=== PATIENT | female | born 1965 | race Caucasian/White ===

== ENCOUNTER 2016-06-11 11:51 | Emergency (ER) | payer OTHER ==
[~2016-06-11] VITALS: Ht 157.5 cm; Wt 83.8 kg
[2016-06-11 11:54] VITALS: TEMP 36.8; Ht 157.5 cm; Wt 83.8 kg
[2016-06-11] MEDS ORDERED: SODIUM CHLORIDE 0.9% 1000ML 1,000 ML IV STA (12:14)
[2016-06-11] MEDS ORDERED: METO25TA56 PO (12:17)
[2016-06-11] MEDS ORDERED: BUSP15TA70 PO (12:17)
[2016-06-11] MEDS ORDERED: FERR1TAB13 PO (12:17)
[2016-06-11] MEDS ORDERED: CLOP1TAB5 PO (12:17)
[2016-06-11] MEDS ORDERED: LISI-729 PO (12:17)
[2016-06-11] MEDS ORDERED: ATOR-26 PO (12:17)
[2016-06-11] MEDS ORDERED: VITACAP26 PO (12:17)
[2016-06-11] MEDS ORDERED: NTRGSL/4 UT (12:19)
[2016-06-11] MEDS ORDERED: AMT50 PO (12:19)
[2016-06-11] MEDS ORDERED: FURO-85 PO (12:19)
[2016-06-11] MEDS ORDERED: CITA20TA9 PO (12:19)
[2016-06-11] MEDS ORDERED: ASPI81TA28 PO (12:19)
--- NOTE | 2016-06-11 12:20 | EMERGENCY ROOM VISIT NOTE ---
History Report prepared by Dorothy: Madisyn Davila Under the Supervision of: Dr. Rico Acuna M.D. First contact with patient: 12:08 Chief Complaint: VAGINAL BLEEDING Stated Complaint: VAGNAL BLEEDING History of Present Illness The patient is a 51 year old female who presents to the Emergency Room with complaints of persistent vaginal bleeding that began in February. She currently rates her discomfort as a 3/10 in severity. The patient states that her last normal menstrual was in November. She states that in February she began passing baseball size clots from her vagina. She states that the bleeding had slowed down, but not completely. The patient states that she consulted her PCP about how much she was bleeding, and after blood work a few weeks ago she was found to be anemic. She states that she was placed on Iron and Vitamin C and set up with Gynecology in July. The patient states that recently she started passing golf ball size clots and states that she soaks through 10-15 pads per hour. She states that if she coughs or sneezes she causes increased bleeding. The patient additionally associates abdominal pain that she describes as labor pains. Source of History: patient Onset: February Position: other (vaginal) Symptom Intensity: 3/10 Quality: other (bleeding) Timing: other (persistent) Modifying Factors (Worsening): other (coughing, sneezing) Associated Symptoms: + abdominal pain Review of Systems See HPI for pertinent positives & negatives. A total of 10 systems reviewed and were otherwise negative. Past Medical & Surgical Medical Problems: (1) Heart disease (2) Hypertension (3) Stented coronary artery Surgical Problems: (1) Previous section (2) S/P triple vessel bypass (3) S/P tubal ligation Family History Diabetes mellitus Gallbladder disease Heart disease Hypertension Social History Smoking Status: Former Smoker Smokeless Tobacco Use: No Alcohol Use: occasionally Marital Status: Housing Status: lives with family Occupation Status: disabled Current/Historical Medications Scheduled Aspirin (Aspirin Ec), 81 MG PO QAM Atorvastatin (Lipitor), 80 MG PO QAM Buspirone Hcl (Buspar), 15 MG PO BID Citalopram Hydrobromide (Celexa), 20 MG PO QPM Clopidogrel Bisulfate (Plavix), 75 MG PO QAM Ferrous Sulfate (Kp Ferrous Sulfate), 1 TAB PO QPM Lisinopril (Zestril), 5 MG PO QAM Metoprolol Tartrate (Lopressor) (Lopressor), 25 MG PO BID Nitroglycerin (Nitrostat), 0.4 MG UT PRN Norethindrone Acetate (Aygestin), 1 TAB PO DAILY Vitamins C & E (Vitamin C), 1 CAP PO QPM Scheduled PRN Amitriptyline Hcl (Elavil), 10 MG PO HS PRN for Headache Furosemide (Lasix), 20 MG PO DAILY PRN for edema Allergies Coded Allergies: Bupropion (Unverified Allergy, Unknown, welts all over, itchy, swelling , 06/11/16) Physical Exam Vital Signs Date Time Temp Pulse Resp B/P Pulse Ox O2 Delivery O2 Flow Rate FiO2 06/11/16 16:17 58 20 127/73 98 06/11/16 13:00 51 18 120/73 97 Room Air 06/11/16 11:54 36.8 63 18 157/74 98 Room Air Physical Exam GENERAL: Patient is a healthy-appearing well-nourished HEAD: Normocephalic atraumatic EYES: Ocular movements intact pupils equal and react to light OROPHARYNX mucous membranes are moist no exudates present no erythema or edema present NECK: Supple no nuchal rigidity CHEST: Good equal expansion LUNGS: Clear and equal to auscultation CARDIAC: Normal S1 and S2 ABDOMEN: Soft, mildly tender in the lower pelvic area no guarding BACK: No CVA tenderness PELVIC: Moderate amount of blood in the vaginal vault. There is no tenderness no chandelier sign. EXTREMITIES: No pain upon palpation normal muscle strength in all groups no clubbing cyanosis or edema NEURO: Patient is following commands is answering questions appropriately. Alert and oriented x3 Cranial Nerves 2-12 grossly intact Medical Decision & Procedures ER Provider Diagnostic Interpretation: US results as stated below per my review and radiologist interpretation: EXAMINATION: PELVIC ULTRASOUND CLINICAL HISTORY: Pt c/o vag bleeding COMPARISON STUDY: None FINDINGS: The uterus measured 1.7 Cm. Several small uterine fibroids measuring up to 2.2 cm. The endometrial stripe measured heterogeneous and somewhat thickened at 1.7 cm.. The right ovary measured 2.9 cm with normal vascular flow. The left ovary measured not identified possibly due to overlying bowel content. There is no ultrasonographic evidence of ovarian torsion. It should be noted that ovarian torsion can be present with normal Doppler ultrasonographic findings. There was no evidence of pathologic free pelvic fluid. IMPRESSION: 1. Several small uterine fibroids. 2. Endometrial thickening at 1.7 cm 3. Normal right ovary. 4. Nonvisualization left ovary possibly due to overlying bowel content Electronically signed by: Nelson Matthews M.D. 06/11/2016 2:58 PM Dictated Date/Time: 06/11/2016 2:53 PM Laboratory Results 06/11/16 12:27 Red Blood Count 3.20, Mean Corpuscular Volume 88.4, Mean Corpuscular Hemoglobin 28.1, Mean Corpuscular Hemoglobin Concent 31.8, Mean Platelet Volume 9.2, Neutrophils (%) (Auto) 74.2, Lymphocytes (%) (Auto) 17.7, Monocytes (%) (Auto) 5.8, Eosinophils (%) (Auto) 1.7, Basophils (%) (Auto) 0.4, Neutrophils # (Auto) 7.44, Lymphocytes # (Auto) 1.77, Monocytes # (Auto) 0.58, Eosinophils # (Auto) 0.17, Basophils # (Auto) 0.04 06/11/16 12:27 Test 06/11/16 12:27 06/11/16 12:38 06/11/16 15:10 White Blood Count 10.02 K/uL (4.8-10.8) Red Blood Count 3.20 M/uL (4.2-5.4) Hemoglobin 9.0 g/dL (12.0-16.0) Hematocrit 28.3 % (37-47) Mean Corpuscular Volume 88.4 fL (80-100) Mean Corpuscular Hemoglobin 28.1 pg (25-34) Mean Corpuscular Hemoglobin Concent 31.8 g/dl (32-36) Platelet Count 330 K/uL (130-400) Mean Platelet Volume 9.2 fL (7.4-10.4) Neutrophils (%) (Auto) 74.2 % Lymphocytes (%) (Auto) 17.7 % Monocytes (%) (Auto) 5.8 % Eosinophils (%) (Auto) 1.7 % Basophils (%) (Auto) 0.4 % Neutrophils # (Auto) 7.44 K/uL (1.4-6.5) Lymphocytes # (Auto) 1.77 K/uL (1.2-3.4) Monocytes # (Auto) 0.58 K/uL (0.11-0.59) Eosinophils # (Auto) 0.17 K/uL (0-0.5) Basophils # (Auto) 0.04 K/uL (0-0.2) RDW Standard Deviation 57.5 fL (36.4-46.3) RDW Coefficient of Variation 18.0 % (11.5-14.5) Immature Granulocyte % (Auto) 0.2 % Immature Granulocyte # (Auto) 0.02 K/uL (0.00-0.02) Prothrombin Time 9.8 SECONDS (9.0-12.0) Prothromb Time International Ratio 0.9 (0.9-1.1) Activated Partial Thromboplast Time 25.0 SECONDS (21.0-31.0) Partial Thromboplastin Ratio 1.0 Anion Gap 11.0 mmol/L (3-11) Est Creatinine Clear Calc Drug Dose 89.1 ml/min Estimated GFR () 107.0 Estimated GFR (Non- 92.3 BUN/Creatinine Ratio 14.0 (10-20) Calcium Level 8.7 mg/dl (8.5-10.1) Total Bilirubin 0.6 mg/dl (0.2-1) Aspartate Amino Transf (AST/SGOT) 17 U/L (15-37) Alanine Aminotransferase (ALT/SGPT) 17 U/L (12-78) Alkaline Phosphatase 86 U/L (45-117) Total Protein 7.2 gm/dl (6.4-8.2) Albumin 3.8 gm/dl (3.4-5.0) Globulin 3.4 gm/dl (2.5-4.0) Albumin/Globulin Ratio 1.1 (0.9-2) Urine Color RED Urine Appearance CLOUDY (CLEAR) Urine pH 6.0 (4.5-7.5) Urine Specific [place] >= 1.030 (1.000-1.030) Urine Protein 2+ (NEG) Urine Glucose (UA) NEG (NEG) Urine Ketones NEG (NEG) Urine Occult Blood 3+ (NEG) Urine Nitrite NEG (NEG) Urine Bilirubin NEG (NEG) Urine Urobilinogen NEG (NEG) Urine Leukocyte Esterase NEG (NEG) Urine RBC >30 /hpf (0-4) Urine WBC 10-30 /hpf (0-5) Urine Epithelial Cells 10-20 /lpf (0-5) Urine Bacteria NEG (NEG) Urine Test NEG (NEG) Date/Time Source Procedure Growth Status 06/11/16 15:10 Cervix Swab Trichomonas Preparation - Final Complete Labs reviewed by ED physician. Medications Administered Medications (Trade) Dose Ordered Sig/Emeli Route Start Time Stop Time Status Last Admin Dose Admin Sodium Chloride (Nss 1000ml) 1,000 ml @ 999 mls/hr Q1H1M STAT IV 06/11/16 12:14 06/11/16 13:14 DC 06/11/16 12:14 999 MLS/HR Ketorolac Tromethamine (Toradol Inj) 30 mg NOW STAT IV 06/11/16 15:12 06/11/16 15:14 DC 06/11/16 15:41 30 MG Norethindrone Acetate (Aygestin Tab) 10 mg NOW STAT PO 06/11/16 15:12 06/11/16 15:14 DC 06/11/16 15:41 10 MG ED Course 1210: Past medical records reviewed. The patient was evaluated in room B7. A complete history and physical examination was performed. 1214: Ordered Sodium Chloride 1000 ml @ 999 mls/hr IV. 1506: I reevaluated the patient and she is resting comfortably. I performed a pelvic exam at this time. See physical exam for further detail. Gynecology will be consulted. 1525: I discussed the patients case with Dr. Caraballo, decal decorator. She states that the patient should be started on Aygestin. 1533: Dr. Caraballo, decal decorator called back notifying me that the patient has an appointment scheduled with Dr. Garcia, decal decorator on Saturday. 1540: I reevaluated the patient and she is doing well. I discussed the treatment plan with her and she verbalized complete understanding and agreement. The patient is ready to go home. Medical Decision Differential diagnosis: Etiologies such as ectopic , dysfunction uterine bleeding, bleeding dyscrasia, trauma, infection, as well as others were entertained. This is a 51-year-old female who presents emergency department complaining of vaginal bleeding who has been ongoing since February. I will note that the patient's Epic records were accessed and the patient's anemia is actually stable from 2 weeks ago. An IV was established, the patient CBC renal profile liver profile were all reviewed. The patient is not . She was sent for pelvic ultrasound which shows a cystic mass. I did discuss the case with gynecology who asked that the patient started on Aygestin. She will follow-up with gynecology on Saturday. Patient was in agreement with the treatment plan. Consults Time Called: 1511 Consulting Physician: Dr. Caraballo, decal decorator Returned Call: 1525 I discussed the patients case with Dr. Caraballo, decal decorator. She states that the patient should be started on Aygestin. Impression Primary Impression: Abnormal vaginal bleeding Scribe Attestation The scribe's documentation has been prepared under my direction and personally reviewed by me in its entirety. I confirm that the note above accurately reflects all work, treatment, procedures, and medical decision making performed by me. Departure Information Dispostion Home / Self-Care Prescriptions Norethindrone Acetate (AYGESTIN) 5 Mg Tab 1 TAB PO DAILY for 10 Days, #10 TAB Prov: Rico Acuna MD 06/11/16 Referrals Dano Garcia ., Jamal Avelar M.D., Canan., MD Forms HOME CARE DOCUMENTATION FORM, IMPORTANT VISIT INFORMATION, WORK / SCHOOL INSTRUCTIONS Patient Instructions Bleeding Uterine, ED Bleed Irregular Vaginal, [facility] Additional Instructions Follow up with Dr Garcia's office 330 on Saturday Take 10 mg Aygestin tomorrow only; after tomorrow continue 5 mg Culture results are usually available in approx 48 hours You have been examined and treated today on an emergency basis only. This is not a substitute for, or an effort to provide, complete comprehensive medical care. It is impossible to recognize and treat all injuries or illnesses in a single emergency department visit. It is therefore important that you follow up closely with Dr Carter Call as soon as possible for an appointment. Thank you for your time and consideration. I look forward to speaking with you again soon. Please don't hesitate to call us if you have any questions.
[2016-06-11 12:44] LABS: BASO % 0.4 %; BASO ABS # 0.04 K/uL (0-0.2); COMPLETE YES; EOS % 1.7 %; HEMATOCRIT 28.3 % (37-47); IG% 0.2 %; LYMPH % 17.7 %; LYMPH ABS # 1.77 K/uL (1.2-3.4); MEAN CELL VOLUME 88.4 fL (80-100); MEAN CORPUSCULAR HEMOGLOBIN 28.1 pg (25-34); MEAN CORPUSCULAR HGB CONC 31.8 g/dl (32-36); MEAN PLATELET VOLUME 9.2 fL (7.4-10.4); MONO % 5.8 %; NEUT % 74.2 %; PLATELET COUNT 330 K/uL (130-400); WHITE BLOOD COUNT 10.02 K/uL (4.8-10.8)
[2016-06-11 12:52] LABS: INR 0.9 (0.9-1.1); PROTHROMBIN TIME (PATIENT) 9.8 SECONDS (9.0-12.0)
[2016-06-11 13:00] LABS: CALCIUM 8.7 mg/dl (8.5-10.1); CREATININE 0.75 mg/dl (0.60-1.20); POTASSIUM 4.1 mmol/L (3.5-5.1)
[2016-06-11 13:03] LABS: ALB/GLOB RATIO 1.1 (0.9-2)
[2016-06-11 13:22] LABS: MANUAL MICROSCOPIC REQUIRED? YES; REVIEW REQ? NO; URINE APPEARANCE CLOUDY (CLEAR); URINE BILIRUBIN NEG (NEG); URINE COLOR RED; URINE NITRITE NEG (NEG); URINE SPECIFIC GRAVITY >= 1.030 (1.000-1.030); UROBILINOGEN NEG (NEG)
[2016-06-11 13:24] LABS: URINE RBC >30 /hpf (0-4)
[2016-06-11 13:25] LABS: URINE BACTERIA NEG (NEG)
--- NOTE | 2016-06-11 15:00 | DIAGNOSTIC IMAGING REPORT ---
EXAMINATION: PELVIC ULTRASOUND CLINICAL HISTORY: Pt c/o vag bleeding COMPARISON STUDY: None FINDINGS: The uterus measured 1.7 Cm. Several small uterine fibroids measuring up to 2.2 cm. The endometrial stripe measured heterogeneous and somewhat thickened at 1.7 cm.. The right ovary measured 2.9 cm with normal vascular flow. The left ovary measured not identified possibly due to overlying bowel content. There is no ultrasonographic evidence of ovarian torsion. It should be noted that ovarian torsion can be present with normal Doppler ultrasonographic findings. There was no evidence of pathologic free pelvic fluid. IMPRESSION: 1. Several small uterine fibroids. 2. Endometrial thickening at 1.7 cm 3. Normal right ovary. 4. Nonvisualization left ovary possibly due to overlying bowel content Electronically signed by: Nelson Matthews M.D. 06/11/2016 2:58 PM Dictated Date/Time: 06/11/2016 2:53 PM
[2016-06-11] MEDS ORDERED: NORETHINDRONE ACETATE 5 MG TAB PO STA (15:12)
[2016-06-11] MEDS ORDERED: KETOROLAC TROMETHAMINE 30 MG/ML VIAL IV STA (15:12)
[2016-06-11] MEDS ORDERED: AYG/5 PO (15:32)
[2016-06-11 16:17] VITALS: BP 127/73; PULSE 58; O2SAT 98
[2016-06-14 01:17] LABS: CHLAMYDIA TRACH RNA*** NOT DETECTED (NOT DETECTED); GC (NEIS GONORRHOEAE)RNA** NOT DETECTED (NOT DETECTED)
--- NOTE | 2016-06-14 15:53 | Pharmacy Progress Note ---
ED Pharmacist Culture FollowUp Date of Service: Jun 14, 2016. Gardnerella vaginalis isolated in genital culture. No clue cells. Pelvic exam with moderate blood, but no other discharge mentioned. Likely normal vaginal marlo. No intervention required. Case discussed w Dr. Bob.
== END 2016-06-11 16:19 | disposition home or self-care (01) ==
LOC: C.EDB 11:53
DX: N93.9 Abnormal uterine and vaginal bleeding, unspecified (principal); I10 Essential (primary) hypertension; I51.9 Heart disease, unspecified; Z98.61 Coronary angioplasty status; Z98.51 Tubal ligation status; Z87.891 Personal history of nicotine dependence; Z79.82 Long term (current) use of aspirin; Z79.899 Other long term (current) drug therapy; Z88.8 Allergy status to other drugs, medicaments and biological substances

== ENCOUNTER 2022-02-04 19:15 | Inpatient (IN) ==
[~2022-02-04 19:15] MED LIST: SODIUM CHLORIDE 0.9% 1000ML 1,000 ML IV SCH
[2022-02-04] MEDS ORDERED: OPTIRAY 320 500ml IV ONE (19:18)
[2022-02-04 19:32] LABS: Basophils # (auto) 0.09 K/uL (0-0.2); Basophils % (auto) 0.8 %; Eosinophils # (auto) 0.33 K/uL (0-0.50); Eosinophils % (auto) 3.1 %; Hematocrit (blood only) 40.1 % (34.1-44.9); Hemoglobin 13.9 g/dl (12.0-16.0); Immature Granulocytes # (auto) 0.03 K/uL (0.00-0.02); Immature Granulocytes % (auto) 0.3 %; Lymphocytes # (auto) 4.08 K/uL (1.2-3.4); Lymphocytes % (auto) 37.8 %; Mean Corpuscular Hgb Conc 34.7 g/dL (32.0-36.0); Mean Corpuscular Volume 92.2 fL (80.0-100.0); Mean Platelet Volume 10.1 fL (9.4-12.3); Monocytes % (auto) 6.5 %; Neutrophils # (auto) 5.57 K/uL (1.4-6.5); Neutrophils % (auto) 51.5 %; Platelet Count 316 K/uL (130-400); RDW Coefficient of Variation 13.2 % (11.5-14.5); RDW Standard Deviation 44.7 fL (36.4-46.3); Red Blood Count 4.35 M/uL (3.93-5.22)
[2022-02-04] MEDS ORDERED: ONDANSETRON INJ 2 MG/ML 2 ML VIAL IV STA (19:38)
[2022-02-04] MEDS ORDERED: ONDANSETRON INJ 2 MG/ML 2 ML VIAL ONE (19:39)
[2022-02-04] MEDS ORDERED: STAT IV STA (19:45)
[2022-02-04] MEDS ORDERED: SODIUM CHLORIDE 0.9% 10ML FLUSH IV STA (19:45)
[2022-02-04] MEDS ORDERED: No Aspirin within 24hrs of THROMBOLYTIC-Stroke PO SCH (19:45)
[2022-02-04 19:48] LABS: Partial Thromboplastin Time 26.2 Seconds (21.0-31.0)
[2022-02-04] MEDS ORDERED: METOCLOPRAMIDE HCL INJ 5 MG/ML 2 ML VIAL IV STA (19:53)
--- NOTE | 2022-02-04 19:54 | CT Scan Report ---
CT angio head w con, CT angio neck with con, CT head/brain wo con CLINICAL HISTORY: 56 years-old Female with Stroke Like Symptoms. Acute strokelike symptoms COMPARISON STUDY: CTA had and neck of same day TECHNIQUE: Unenhanced axial CT scan of the brain is performed. Subsequently, following the IV adminis tration of 112 cc of Optiray, CT angiogram of the head and neck was performed from the aortic arch to the skull apex. Images are reviewed in the axial, sagittal, and coronal planes. 3-D MIPS images are created and assessed. IV contrast was administered without complication. All measurements were obtain ed according to NASCET criteria. A dose lowering technique was utilized adhering to the principles of ALARA. FINDINGS: CT BRAIN: There is no acute intracranial hemorrhage, midline shift, hydrocephalus, intracranial mass, territori al ischemia or abnormal extra-axial collections. No abnormal intra-axial or extra-axial enhancement. Mild involutional changes. Cerebral vascular calcifications. Mastoid air cells and middle ear caviti es are clear. No calvarial fracture. Paranasal sinuses are clear. CT ANGIOGRAM OF THE HEAD AND NECK: Prior median sternotomy with CABG. Three-vessel morphology of the thoracic aortic arch. Patency of th e innominate and imaged subclavian arteries. The common and internal carotid arteries are patent. Ath erosclerotic plaque of the carotid bulbs results in less than 50% stenosis bilaterally. The bilateral anterior and middle cerebral arteries are also patent. Dominant left vertebral artery. Atherosclerot ic plaque of the left greater the right vertebral arteries without high-grade stenosis. The basilar a rtery is patent. Mild to moderate multifocal luminal narrowing throughout the right posterior cerebra l artery. Age-indeterminate occlusion of the P1 segment of the left posterior cerebral artery on imag e 97 series 5 mild distal reconstitution suggested. Cerebral venous sinuses are patent. Otherwise unr emarkable exam without aneurysm or dissection. Thorax. The lung apices appear clear. Unremarkable soft tissues of the neck. Degenerative changes of the cervical spine. IMPRESSION: 1. No acute intracranial abnormality identified. 2. 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 3. Mild atherosclerotic plaque of the carotid bulbs and proximal cervical segments of the internal ca rotid arteries without significant stenosis. ACT 112: Negative or not required by law. The above report was generated using voice recognition software. It may contain grammatical, syntax o r spelling errors. Electronically signed by: Drake Nevarez M.D. 02/04/2022 7:51 PM
[2022-02-04] MEDS ORDERED: TENECTEPLASE 20 MG in SYRINGE 0 ML IV ONE (19:56)
[2022-02-04 20:01] LABS: Troponin I High Sensitivity 5.9 pg/ml (0-14)
[2022-02-04] MEDS ORDERED: SODIUM CHLORIDE 0.9% 500 ML IV ONE (20:18)
--- NOTE | 2022-02-04 20:18 | Emergency Department Note ---
History of Present Illness General Chief complaint: Stroke Alert Stated complaint: STROKE SYMPTOMS History of Present Illness 56-year-old female presents to the ED with a chief complaint of stroke symptoms. Her symptoms started at around 1800 hrs. today. She states that she was packing to meet with her . She suddenly felt like she could not feel her right side. She also could not move her right side including the right arm and right leg. She also states that her right side of her vision was lost. She was transported here by EMS. She has history of CABG and stents in the past. No recent bleeding. Takes aspirin but no anticoagulants. A stroke alert was called prior to the patient's arrival. Home Medications Medication Instructions Recorded Confirmed Type acetaminophen 500 mg tablet 1,000 mg PO TID PRN Pain 02/04/22 02/04/22 History amlodipine 5 mg tablet 5 mg PO DAILY 02/04/22 02/04/22 History aspirin 81 mg tablet,delayed 81 mg PO DAILY 02/04/22 02/04/22 History release atorvastatin 80 mg tablet 80 mg PO DAILY 02/04/22 02/04/22 History buspirone 5 mg tablet 5 mg PO BID 02/04/22 02/04/22 History citalopram 40 mg tablet 40 mg PO DAILY 02/04/22 02/04/22 History ezetimibe 10 mg tablet 10 mg PO DAILY 02/04/22 02/04/22 History fenofibrate 54 mg tablet 54 mg PO DAILY 02/04/22 02/04/22 History furosemide 20 mg tablet 20 mg PO DAILY PRN edema,fluid 02/04/22 02/04/22 History accumulation or wt gain lisinopril 2.5 mg tablet 2.5 mg PO DAILY 02/04/22 02/04/22 History metoprolol succinate 25 mg 12.5 mg PO DAILY 02/04/22 02/04/22 History tablet,extended release 24 hr nitroglycerin 0.4 mg sublingual 0.4 mg sublingual Q5W PRN Chest 02/04/22 02/04/22 History tablet (Nitrostat) Pain Allergies Allergy/AdvReac Type Severity Reaction Status Date / Time bupropion Allergy Unknown welts all Unverified 02/04/22 19:45 over, itchy, swelling Past Med/Surg History Medical History (Updated 02/04/22 @ 23:26 by Rico Unger DO) CAD (coronary artery disease) Hyperlipidemia Hypertension Obesity Social History Smoking Status: Never smoker Preferred Language: Slovenian Feels Safe at Home: Yes Review of Systems A total of 10 systems reviewed and were otherwise negative Physical Exam Vital Signs Vital Signs - 24 hr 02/04/22 19:28 02/04/22 20:00 02/04/22 20:14 Temperature 36.8 C Temperature Source Oral Pulse Rate 80 Pulse Rate [Finger] 75 78 Respiratory Rate 20 18 16 Blood Pressure 128/89 Blood Pressure [Right Arm] 132/86 144/77 H Blood Pressure Mean 102 Blood Pressure Mean [Right Arm] 101 99 Pulse Oximetry 93 95 97 Oxygen Delivery Method Room Air Room Air Room Air Oxygen Flow Rate Sepsis Recent Fever Within 48 Hours No Sepsis New/Unexplained Change in Mental Status N/A Sepsis Action Taken by Nursing No Action Required 02/04/22 20:30 02/04/22 20:45 02/04/22 21:00 Temperature Temperature Source Pulse Rate Pulse Rate [Finger] 71 72 72 Respiratory Rate 18 20 16 Blood Pressure Blood Pressure [Right Arm] 121/61 106/61 127/63 Blood Pressure Mean Blood Pressure Mean [Right Arm] 81 76 84 Pulse Oximetry 95 94 92 Oxygen Delivery Method Room Air Room Air Room Air Oxygen Flow Rate Sepsis Recent Fever Within 48 Hours Sepsis New/Unexplained Change in Mental Status Sepsis Action Taken by Nursing 02/04/22 21:15 02/04/22 21:30 02/04/22 21:45 Temperature Temperature Source Pulse Rate Pulse Rate [Finger] 73 78 70 Respiratory Rate 18 20 16 Blood Pressure Blood Pressure [Right Arm] 109/61 105/66 113/64 Blood Pressure Mean Blood Pressure Mean [Right Arm] 77 79 80 Pulse Oximetry 91 96 97 Oxygen Delivery Method Room Air Nasal Cannula Nasal Cannula Oxygen Flow Rate 2 2 Sepsis Recent Fever Within 48 Hours Sepsis New/Unexplained Change in Mental Status Sepsis Action Taken by Nursing CONSTITUTIONAL/VITAL SIGNS: Reviewed / noted above. GENERAL: Non-toxic in appearance. INTEGUMENTARY: Warm, dry, and [place]. HEAD: Normocephalic. EYES: without scleral icterus or trauma. ENT/OROPHARYNX: clear and moist. LYMPHADENOPATHY/NECK: Is supple without lymphadenopathy or meningismus. RESPIRATORY: Clear to auscultation bilaterally. No increased work of breathing. CARDIOVASCULAR: Regular rate and rhythm. GI/ABDOMEN: Soft and nontender. No organomegaly or pulsatile mass. EXTREMITIES: Warm and well perfused. NEUROLOGICAL: Patient has some right-sided visual loss. Right leg and right arm are weak although she seems to have loss of coordination especially of the right arm. She is right-handed. Grossly sensation is intact although she states that her right leg and right arm feels slightly different than the left. PSYCHIATRIC: normal affect. MUSCULOSKELETAL: Normally developed with good muscle tone. TRIAGE NURSING DOCUMENTATION REVIEWED. Course Administered Medications Buspirone HCl (Buspirone 5 Mg Tab) 5 mg PO TID CHIARA Stop: 03/06/22 20:59 Last Admin: 02/04/22 20:56 Dose: 5 mg Documented By: JENNYFER Discontinued Medications Sodium Chloride (Nss 1000ml) 1,000 mls @ 50 mls/hr IV .Q20H [facility] Stop: 03/06/22 19:14 Last Infusion: 02/04/22 20:29 Dose: 100 mls/hr Documented By: Admin: 02/04/22 19:49 Dose: 50 mls/hr Documented By: JENNYFER Tenecteplase 20 mg/ Syringe 4 mls @ 48 mls/min IV NOW ONE; Protocol Stop: 02/04/22 19:57 Last Admin: 02/04/22 19:59 Dose: 48 mls/min Documented By: JENNYFER Co-signed By: ELI Magnesium Sulfate/Dextrose (Magnesium Sulfate / D5w) 1 gm in 100 mls @ 200 mls/hr IV Q30M [facility] Stop: 02/04/22 21:17 Last Infusion: 02/04/22 21:32 Dose: 0 mls/hr Documented By: Admin: 02/04/22 20:55 Dose: 200 mls/hr Documented By: Infusion: 02/04/22 20:55 Dose: 200 mls/hr Documented By: Admin: 02/04/22 20:25 Dose: 200 mls/hr Documented By: JENNYFER Sodium Chloride (Nss) 500 mls @ 999 mls/hr IV .Q31M ONE Stop: 02/04/22 20:48 Last Infusion: 02/04/22 20:29 Dose: 0 mls/hr Documented By: Admin: 02/04/22 20:25 Dose: 999 mls/hr Documented By: JENNYFER Ioversol (Optiray 320 500ml) 112 ml IV ONCE ONE Stop: 02/04/22 19:19 Last Admin: 02/04/22 19:19 Dose: 112 ml Documented By: KENIA Lorazepam (Lorazepam 1 Mg/1 Ml Syr) 1 mg IV NOW STA; Protocol Stop: 02/04/22 20:27 Last Admin: 02/04/22 20:31 Dose: 1 mg Documented By: JENNYFER Metoclopramide HCl (Metoclopramide Hcl Inj 5 Mg/Ml 2 Ml Vial) 10 mg IV NOW STA Stop: 02/04/22 19:54 Last Admin: 02/04/22 19:58 Dose: 10 mg Documented By: JENNYFER Miscellaneous (Stat Iv) 1 each N/A NOW STA Stop: 02/04/22 19:46 Last Admin: 02/04/22 19:49 Dose: 1 each Documented By: JENNYFER Ondansetron HCl (Ondansetron Inj 2 Mg/Ml 2 Ml Vial) 4 mg IV NOW STA Stop: 02/04/22 19:39 Last Admin: 02/04/22 19:45 Dose: 4 mg Documented By: JENNYFER Ondansetron HCl (Ondansetron Inj 2 Mg/Ml 2 Ml Vial) Confirm Administered Dose 4 mg .ROUTE .STK-MED ONE Stop: 02/04/22 19:40 Last Admin: 02/04/22 19:49 Dose: Not Given Documented By: JENNYFER Sodium Chloride (Sodium Chloride 0.9% 10ml Flush) 20 ml IV NOW STA Stop: 02/04/22 19:46 Last Admin: 02/04/22 20:00 Dose: 20 ml Documented By: JENNYFER Critical Care Time Critical Care Time: Yes Total Critical Care Time: 45 I have personally spent 45 minutes of critical care time in the direct management of this patient. This includes bedside care, interpretation of diagnostic studies, and testing, discussion with consultants, patient, and family members, and other required patient management activities. This 45 minutes is in excess of all separately billable procedures. Medical Decision Making Differential Diagnosis Differential includes acute coronary syndrome, myocardial infarction, CVA, TIA, anemia, infection, pneumonia, UTI, pyelonephritis, poor nutrition, dehydration, electrolyte disturbance,hypoglycemia. Medical Records Attestation: I reviewed the patient's medical records. Home Medications Current Medication List: was personally reviewed by me Laboratory Data Attestation: I reviewed the patient's lab results. Result diagrams: 02/04/22 19:00 02/04/22 19:00 Lab Results 02/04/22 02/04/22 02/04/22 Range/Units 19:00 19:00 19:00 WBC 10.80 (4.8-10.8) K/ul RBC 4.35 (3.93-5.22) M/uL Hgb 13.9 (12.0-16.0) g/dl Hct 40.1 (34.1-44.9) % MCV 92.2 (80.0-100.0) fL MCH 32.0 (25.0-34.0) pg MCHC 34.7 (32.0-36.0) g/dL RDW Std Deviation 44.7 (36.4-46.3) fL RDW Coeff of Sophie 13.2 (11.5-14.5) % Plt Count 316 (130-400) K/uL MPV 10.1 (9.4-12.3) fL Immature Gran % (Auto) 0.3 % Neut % (Auto) 51.5 % Lymph % (Auto) 37.8 % Mccracken % (Auto) 6.5 % Eos % (Auto) 3.1 % Baso % (Auto) 0.8 % Neut # (Auto) 5.57 (1.4-6.5) K/uL Lymph # (Auto) 4.08 H (1.2-3.4) K/uL Mccracken # (Auto) 0.70 (0.24-0.82) K/uL Eos # (Auto) 0.33 (0-0.50) K/uL Baso # (Auto) 0.09 (0-0.2) K/uL Immature Gran # (Auto) 0.03 H (0.00-0.02) K/uL PT 11.0 (9.0-12.0) Seconds INR 1.0 (0.9-1.1) APTT 26.2 (21.0-31.0) Seconds PTT Ratio 1.0 Sodium 137 (136-145) mmol/L Potassium 3.5 (3.5-5.1) mmol/L Chloride 102 (98-107) mmol/L Carbon Dioxide 21 (21-32) mmol/L Anion Gap 14 H (3-11) BUN 18 (6-23) mg/dl Creatinine 1.00 (0.6-1.2) mg/dl Est Cr Clr Drug Dosing 63.6 ml/min Est GFR ( Amer) 72.9 ml/min Est GFR (Non-Af Amer) 62.9 ml/min BUN/Creatinine Ratio 18.0 (10-20) Glucose 135 H (70-99(Fasting)) mg/dl Lactate (0.4-2.0) mmol/L Calcium 10.0 (8.5-10.1) mg/dl Magnesium 1.7 (1.7-2.4) mg/dl Total Bilirubin 1.1 H (0.2-1.0) mg/dl AST 22 (13-39) U/L ALT 18 (7-52) U/L Alkaline Phosphatase 72 (34-104) U/L Troponin I High Sens 5.9 (0-14) pg/ml Total Protein 7.7 (6.0-8.3) gm/dl Albumin 4.6 (3.4-5.0) gm/dl Globulin 3.1 (2.5-4.0) gm/dl Albumin/Globulin Ratio 1.5 (0.9-2) Urine Color Urine Appearance (Clear) Urine pH (4.5-7.5) Ur Specific Addison (1.000-1.030) Urine Protein (Negative) Urine Glucose (UA) (Negative) Urine Ketones (Negative) Urine Blood (Negative) Urine Nitrite (Negative) Urine Bilirubin (Negative) Urine Urobilinogen (Negative) Ur Leukocyte Esterase (Negative) Urine WBC (Auto) (0-5) /hpf Urine RBC (Auto) (0-4) /hpf U Hyaline Cast (Auto) (0-5) /lpf U Epithel Cells (Auto) (0-5) /lpf Urine Bacteria (Auto) (Negative) SARS-CoV-2, RNA, NAAT (NEGATIVE) Blood Type Antibody Screen 02/04/22 02/04/22 02/04/22 Range/Units 19:43 19:43 20:35 WBC (4.8-10.8) K/ul RBC (3.93-5.22) M/uL Hgb (12.0-16.0) g/dl Hct (34.1-44.9) % MCV (80.0-100.0) fL MCH (25.0-34.0) pg MCHC (32.0-36.0) g/dL RDW Std Deviation (36.4-46.3) fL RDW Coeff of Sophie (11.5-14.5) % Plt Count (130-400) K/uL MPV (9.4-12.3) fL Immature Gran % (Auto) % Neut % (Auto) % Lymph % (Auto) % Mccracken % (Auto) % Eos % (Auto) % Baso % (Auto) % Neut # (Auto) (1.4-6.5) K/uL Lymph # (Auto) (1.2-3.4) K/uL Mccracken # (Auto) (0.24-0.82) K/uL Eos # (Auto) (0-0.50) K/uL Baso # (Auto) (0-0.2) K/uL Immature Gran # (Auto) (0.00-0.02) K/uL PT (9.0-12.0) Seconds INR (0.9-1.1) APTT (21.0-31.0) Seconds PTT Ratio Sodium (136-145) mmol/L Potassium (3.5-5.1) mmol/L Chloride (98-107) mmol/L Carbon Dioxide (21-32) mmol/L Anion Gap (3-11) BUN (6-23) mg/dl Creatinine (0.6-1.2) mg/dl Est Cr Clr Drug Dosing ml/min Est GFR ( Amer) ml/min Est GFR (Non-Af Amer) ml/min BUN/Creatinine Ratio (10-20) Glucose (70-99(Fasting)) mg/dl Lactate 4.7 H* (0.4-2.0) mmol/L Calcium (8.5-10.1) mg/dl Magnesium (1.7-2.4) mg/dl Total Bilirubin (0.2-1.0) mg/dl AST (13-39) U/L ALT (7-52) U/L Alkaline Phosphatase (34-104) U/L Troponin I High Sens (0-14) pg/ml Total Protein (6.0-8.3) gm/dl Albumin (3.4-5.0) gm/dl Globulin (2.5-4.0) gm/dl Albumin/Globulin Ratio (0.9-2) Urine Color Yellow Urine Appearance Clear (Clear) Urine pH 5.0 (4.5-7.5) Ur Specific Addison > 1.045 H (1.000-1.030) Urine Protein Trace H (Negative) Urine Glucose (UA) Negative (Negative) Urine Ketones Negative (Negative) Urine Blood 1+ H (Negative) Urine Nitrite Negative (Negative) Urine Bilirubin Negative (Negative) Urine Urobilinogen Negative (Negative) Ur Leukocyte Esterase Negative (Negative) Urine WBC (Auto) 5-10 H (0-5) /hpf Urine RBC (Auto) 5-10 H (0-4) /hpf U Hyaline Cast (Auto) 1-5 (0-5) /lpf U Epithel Cells (Auto) >30 H (0-5) /lpf Urine Bacteria (Auto) 1+ H (Negative) SARS-CoV-2, RNA, NAAT (NEGATIVE) Blood Type O Positive Antibody Screen NEGATIVE 02/04/22 Range/Units 20:40 WBC (4.8-10.8) K/ul RBC (3.93-5.22) M/uL Hgb (12.0-16.0) g/dl Hct (34.1-44.9) % MCV (80.0-100.0) fL MCH (25.0-34.0) pg MCHC (32.0-36.0) g/dL RDW Std Deviation (36.4-46.3) fL RDW Coeff of Sophie (11.5-14.5) % Plt Count (130-400) K/uL MPV (9.4-12.3) fL Immature Gran % (Auto) % Neut % (Auto) % Lymph % (Auto) % Mccracken % (Auto) % Eos % (Auto) % Baso % (Auto) % Neut # (Auto) (1.4-6.5) K/uL Lymph # (Auto) (1.2-3.4) K/uL M[place]racken # (Auto) (0.24-0.82) K/uL Eos # (Auto) (0-0.50) K/uL Baso # (Auto) (0-0.2) K/uL Immature Gran # (Auto) (0.00-0.02) K/uL PT (9.0-12.0) Seconds INR (0.9-1.1) APTT (21.0-31.0) Seconds PTT Ratio Sodium (136-145) mmol/L Potassium (3.5-5.1) mmol/L Chloride (98-107) mmol/L Carbon Dioxide (21-32) mmol/L Anion Gap (3-11) BUN (6-23) mg/dl Creatinine (0.6-1.2) mg/dl Est Cr Clr Drug Dosing ml/min Est GFR ( Amer) ml/min Est GFR (Non-Af Amer) ml/min BUN/Creatinine Ratio (10-20) Glucose (70-99(Fasting)) mg/dl Lactate (0.4-2.0) mmol/L Calcium (8.5-10.1) mg/dl Magnesium (1.7-2.4) mg/dl Total Bilirubin (0.2-1.0) mg/dl AST (13-39) U/L ALT (7-52) U/L Alkaline Phosphatase (34-104) U/L Troponin I High Sens (0-14) pg/ml Total Protein (6.0-8.3) gm/dl Albumin (3.4-5.0) gm/dl Globulin (2.5-4.0) gm/dl Albumin/Globulin Ratio (0.9-2) Urine Color Urine Appearance (Clear) Urine pH (4.5-7.5) Ur Specific Addison (1.000-1.030) Urine Protein (Negative) Urine Glucose (UA) (Negative) Urine Ketones (Negative) Urine Blood (Negative) Urine Nitrite (Negative) Urine Bilirubin (Negative) Urine Urobilinogen (Negative) Ur Leukocyte Esterase (Negative) Urine WBC (Auto) (0-5) /hpf Urine RBC (Auto) (0-4) /hpf U Hyaline Cast (Auto) (0-5) /lpf U Epithel Cells (Auto) (0-5) /lpf Urine Bacteria (Auto) (Negative) SARS-CoV-2, RNA, NAAT NEGATIVE (NEGATIVE) Blood Type Antibody Screen Imaging Data Radiologist's Impression: Head CT 02/04/22 19:12 CT angio head w con, CT angio neck with con, CT head/brain wo con CLINICAL HISTORY: 56 years-old Female with Stroke Like Symptoms. Acute strokelike symptoms COMPARISON STUDY: CTA had and neck of same day TECHNIQUE: Unenhanced axial CT scan of the brain is performed. Subsequently, following the IV administration of 112 cc of Optiray, CT angiogram of the head and neck was performed from the aortic arch to the skull apex. Images are reviewed in the axial, sagittal, and coronal planes. 3-D MIPS images are created and assessed. IV contrast was administered without complication. All measurements were obtained according to NASCET criteria. A dose lowering te chnique was utilized adhering to the principles of ALARA. FINDINGS: CT BRAIN: There is no acute intracranial hemorrhage, midline shift, hydrocephalus, intracranial mass, territorial ischemia or abnormal extra-axial collections. No abnormal intra-axial or extra-axial enhancement. Mild involutional changes. Cerebral vascular calcifications. Mastoid air cells and middle ear cavities are clear. No calvarial fracture. Paranasal sinuses are clear. CT ANGIOGRAM OF THE HEAD AND NECK: Prior median sternotomy with CABG. Three-vessel morphology of the thoracic aortic arch. Patency of the innominate and imaged subclavian arteries. The common and internal carotid arteries are patent. Atherosclerotic plaque of the carotid bulbs results in less than 50% stenosis bilaterally. The bilateral anterior and middle cerebral arteries are also patent. Dominant left vertebral artery. Atherosclerotic plaque of the left greater the right vertebral arteries without high-grade stenosis. The basilar artery is patent. Mild to moderate multifocal luminal narrowing throughout the right posterior cerebral artery. Age-indeterminate occlusion of the P1 segment of the left posterior cerebral artery on image 97 series 5 mild distal reconstitution suggested. Cerebral venous sinuses are patent. Otherwise unremarkable exam without aneurysm or dissection. Thorax. The lung apices appear clear. Unremarkable soft tissues of the neck. Degenerative changes of the cervical spine. IMPRESSION: 1. No acute intracranial abnormality identified. 2. 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 3. Mild atherosclerotic plaque of the carotid bulbs and proximal cervical segments of the internal carotid arteries without significant stenosis. ACT 112: Negative or not required by law. The above report was generated using voice recognition software. It may contain grammatical, syntax or spelling errors. Electronically signed by: Drake Nevarez M.D. 02/04/2022 7:51 PM Head CTA 02/04/22 19:12 CT angio head w con, CT angio neck with con, CT head/brain wo con CLINICAL HISTORY: 56 years-old Female with Stroke Like Symptoms. Acute stro kelike symptoms COMPARISON STUDY: CTA had and neck of same day TECHNIQUE: Unenhanced axial CT scan of the brain is performed. Subsequently, following the IV administration of 112 cc of Optiray, CT angiogram of the head and neck was performed from the aortic arch to the skull apex. Images are reviewed in the axial, sagittal, and coronal planes. 3-D MIPS images are created and assessed. IV contrast was administered without complication. All thuy urements were obtained according to NASCET criteria. A dose lowering technique was utilized adhering to the principles of ALARA. FINDINGS: CT BRAIN: There is no acute intracranial hemorrhage, midline shift, hydrocephalus, intracranial mass, territorial ischemia or abnormal extra-axial collections. No abnormal intra-axial or extra-axial enhancement. Mild involutional changes. Cerebral vascular calcifications. Mastoid air cells and middle ear cavities are clear. No calvarial fracture. Paranasal sinuses are clear. CT ANGIOGRAM OF THE HEAD AND NECK: Prior median sternotomy with CABG. Three-vessel morphology of the thoracic aortic arch. Patency of the innominate and imaged subclavian arteries. The common and internal carotid arteries are patent. Atherosclerotic plaque of the carotid bulbs results in less than 50% stenosis bilaterally. The bilateral anterior and middle cerebral arteries are also patent. Dominant left vertebral artery. Atherosclerotic plaque of the left greater the right vertebral arteries without high-grade stenosis. The basilar artery is patent. Mild to moderate multifocal luminal narrowing throughout the right posterior cerebral artery. Age-indeterminate occlusion of the P1 segment of the left posterior cerebral artery on image 97 series 5 mild distal reconstitution suggested. Cerebral venous sinuses are patent. Otherwise unremarkable exam without aneurysm or dissection. Thorax. The lung apices appear clear. Unremarkable soft tissues of the neck. Degenerative changes of the cervical spine. IMPRESSION: 1. No acute intracranial abnormality identified. 2. 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 3. Mild atherosclerotic plaque of the carotid bulbs and proximal cervical segments of the internal carotid arteries without significant stenosis. ACT 112: Negative or not required by law. The above report was generated using voice recognition software. It may contain grammatical, syntax or spelling errors. Electronically signed by: Drake Nevarez M.D. 02/04/2022 7:51 PM Neck CTA 02/04/22 19:12 CT angio head w con, CT angio neck with con, CT head/brain wo con CLINICAL HISTORY: 56 years-old Female with Stroke Like Symptoms. Acute strokelike symptoms COMPARISON STUDY: CTA had and neck of same day TECHNIQUE: Unenhanced axial CT scan of the brain is performed. Subsequently, following the IV administration of 112 cc of Optiray, CT angiogram of the head and neck was performed from the aortic arch to the skull apex. Images are reviewed in the axial, sagittal, and coronal planes. 3-D MIPS images are created and assessed. IV contrast was administered without complication. All measurements were obtained according to NASCET criteria. A dose lowering technique was utilized adhering to the principles of ALARA. FINDINGS: CT BRAIN: There is no acute intracranial hemorrhage, midline shift, hydrocephalus, intracranial mass, territorial ischemia or abnormal extra-axial collections. No abnormal intra-axial or extra-axial enhancement. Mild involutional changes. Cerebral vascular calcifications. Mastoid air cells and middle ear cavities are clear. No calvarial fracture. Paranasal sinuses are clear. CT ANGIOGRAM OF THE HEAD AND NECK: Prior median sternotomy with CABG. Three-vessel morphology of the thoracic aortic arch. Patency of the innominate and imaged subclavian arteries. The common and internal carotid arteries are patent. Atherosclerotic plaque of the carotid bulbs results in less than 50% stenosis bilaterally. The bilateral anterior and middle cerebral arteries are also patent. Dominant left vertebral artery. Atherosclerotic plaque of the left greater the right vertebral arteries without high-grade stenosis. The basilar artery is patent. Mild to moderate multifocal luminal narrowing throughout the right posterior cerebral artery. Age-indeterminate occlusion of the P1 segment of the left posterior cerebral artery on image 97 series 5 mild distal reconstitution suggested. Cerebral venous sinuses are patent. Otherwise unremarkable exam without aneurysm or dissection. Thorax. The lung apices appear clear. Unremarkable soft tissues of the neck. Degenerative changes of the cervical spine. IMPRESSION: 1. No acute intracranial abnormality identified. 2. 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 3. Mild atherosclerotic plaque of the carotid bulbs and proximal cervical segments of the internal carotid arteries without significant stenosis. ACT 112: Negative or not required by law. The above report was generated using voice recognition software. It may contain grammatical, syntax or spelling errors. Electronically signed by: Drake Nevarez M.D. 02/04/2022 7:51 PM ECG Data Attestation: I personally reviewed and interpreted this ECG as follows: Additional Comments: Twelve-lead EKG: Per my interpretation shows a sinus rhythm at a rate of 83 with a PVC occasionally. No ST elevation. Normal QTC. MDM Narrative 56-year-old female presents with a chief complaint of right-sided weakness and s ome visual loss on the right side that occurred at 1800 hrs. today. A stroke alert was called prior to the patient's arrival. I did speak with Snow Cunningham neurologist who also evaluated the patient in the ED. The decision was made after speaking with the patient to provide IV TNKase. This was administered approximately 50 minutes after the patient's arrival. CBC was unremarkable. Chemistry panel shows a glucose of 135. Lactic acid was elevated at 4.7. Troponin was negative. Urine appears contaminated. Chest x-ray was negative. Impression & Plan Cerebrovascular accident Discharge Plan Visit Data Chief Complaint: Stroke Alert Stated Complaint: STROKE SYMPTOMS ED Provider: Rico Unger Discharge Problem: Cerebrovascular accident Discharge Instructions Interventions: ED Discharge Assessment Last Done: 02/04/22 22:15
[2022-02-04 20:20] LABS: Albumin Globulin Ratio 1.5 (0.9-2); Albumin Level 4.6 gm/dl (3.4-5.0); Bilirubin,Total 1.1 mg/dl (0.2-1.0); Creatinine Clr Calc Pharmacy 63.6 ml/min; Est GFR (African American) 72.9 ml/min; Est GFR (Non-African American) 62.9 ml/min; Globulin 3.1 gm/dl (2.5-4.0); Magnesium 1.7 mg/dl (1.7-2.4); Potassium 3.5 mmol/L (3.5-5.1); Total Protein 7.7 gm/dl (6.0-8.3)
[2022-02-04] MEDS: MAGNESIUM SULFATE / D5W 1 GM/100 ML BAG IV SCH ×2 (20:25→20:55)
[2022-02-04] MEDS ORDERED: LORazepam 1 MG/1 ML SYR IV STA (20:26)
[2022-02-04 20:44] LABS: Appearance Urine Clear (Clear); Bacteria Urine Automated 1+ (Negative); Bilirubin Urine Negative (Negative); Blood Urine 1+ (Negative); Color Urine Yellow; Epithelial Cell Urine Auto >30 /lpf (0-5); Glucose Urine UA Negative (Negative); Ketones Urine Negative (Negative); Leukocyte Esterase Urine Negative (Negative); Nitrite Urine Negative (Negative); Protein Urine Trace (Negative); Specific Gravity Urine > 1.045 (1.000-1.030); Urobilinogen Urine Negative (Negative)
[2022-02-04] MEDS ORDERED: busPIRone 5 MG TAB PO SCH (21:00)
--- NOTE | 2022-02-04 22:02 | Critical Care Consultation ---
Date of Consultation February 04, 2022 Assessment & Plan (1) Heart disease: (2) Hypertension: (3) CAD (coronary artery disease): (4) Hyperlipidemia: (5) Obesity: Plan Reason Critically Ill: 52 YOF arrived to EMD as stroke alert for onset of loss of sensation to right side, weakness right side, and vision loss of right side. She received TNKase at 1956 following cerebral imaging and tele stroke evaluation. Patient feels her symptoms have resolved and is back to baseline. She will be admitted to ICU for 24 hour monitoring post TNKase, neurological/hemodynamic monitoring. Neuro - Stroke like symptoms, Status post TNKase Continue neurological exams q1 hour- MRI pending, CT head non-con for any changes and 24 hour post CAM ICU: Negative - NIHSS- 0 - CVA symptoms while on ASA - defer to neurology and primary service for additional antiplatelets - Passed bedside swallow - Standard BP goals <180/105 - Normal Sodium goals - Already on high dose statin and Zetia - PT/OT consultation - ECHO in am with bubble - Telemetry monitoring for dysrhythmia - denies JAMES/CPAP usage at home Cardiac - CAD, CABG, Coronary artery stents -Early CAD with bypass grafting and stenting to [place] arteries - Continued HDS - Continue ASA- no aspirin for 24 hours - Telemetry for 24 follow for any dysrhythmias - ECHO in am with bubble study Respiratory - No acute needs - Recommend screening for JAMES for further prevention GI - NO acute needs Diet regular- passed bedside swallow RENAL/LYTES - No acute needs - electrolyte protocol - UTI - uncomplicated UTI- asymptotic per patient- defer to primary service for treatment ENDO - No acute needs HEME - No acute needs ID - UTI as above - lactate elevated on admission with no other evidence of SIRS criteria or infection - IV fluids overnight- re-evaluate LINES/IV ACCESS - PIV Continue use of these lines DVT PROPHYLAXIS - SCDS - chemoprophylaxis on hold for 24 hour following TNKase DISPO ICU I have personally spent 35 minutes of critical care time in the direct management of this patient. This is a life/limb threatening event. This includes time spent evaluating patient, direct bedside care, chart review, placing orders, interpretation of diagnostic studies, discussion with consultants, patient, and family members, as well as other required patient management activities. This time is exclusive of all separately billable procedures, and teaching time and separate from and in addition to any other critical care service time. Thank you for allowing us to participate in the care of this patient. Please refer to my attending physician's documentation for any further recommendations. History of Present Illness Reason for Consultation: Status post TNKase for stroke like symptoms Requesting Physician: Jung Attending Physician: Jung History of Present Illness 56 YOF who presented to the EMD today after experiencing what she reports as loss of sensation/function of her right upper, right lower, and vision loss of her right eye. 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 She states she sat down and then her symptoms started. She called EMS and was evaluated in the EMD as a stroke alert upon arrival. Patient had labs drawn, imaging of her head and neck was completed. These were interpreted as without acute process or any carotid disease >50%. She was deemed a TNKase candidate and this was recorded as being administered at 1956. ICU was consulted for admission for 24 hour monitoring post TPA. Patient risk factors of: HTN, CAD, HLD, Obesity. She has medical history of CABG, coronary artery stents. She is on ASA 81, high dose statin, TONY. COVID test on admission is: NEGATIVE Allergies Allergy/AdvReac Type Severity Reaction Status Date / Time bupropion Allergy Unknown welts all Unverified 02/04/22 19:45 over, itchy, swelling Home Medications Medication Instructions Recorded Confirmed Type acetaminophen 500 mg tablet 1,000 mg PO TID PRN Pain 02/04/22 02/04/22 History amlodipine 5 mg tablet 5 mg PO DAILY 02/04/22 02/04/22 History aspirin 81 mg tablet,delayed 81 mg PO DAILY 02/04/22 02/04/22 History release atorvastatin 80 mg tablet 80 mg PO DAILY 02/04/22 02/04/22 History buspirone 5 mg tablet 5 mg PO BID 02/04/22 02/04/22 History citalopram 40 mg tablet 40 mg PO DAILY 02/04/22 02/04/22 History ezetimibe 10 mg tablet 10 mg PO DAILY 02/04/22 02/04/22 History fenofibrate 54 mg tablet 54 mg PO DAILY 02/04/22 02/04/22 History furosemide 20 mg tablet 20 mg PO DAILY PRN edema,fluid 02/04/22 02/04/22 History accumulation or wt gain lisinopril 2.5 mg tablet 2.5 mg PO DAILY 02/04/22 02/04/22 History metoprolol succinate 25 mg 12.5 mg PO DAILY 02/04/22 02/04/22 History tablet,extended release 24 hr nitroglycerin 0.4 mg sublingual 0.4 mg sublingual Q5W PRN Chest 02/04/22 02/04/22 History tablet (Nitrostat) Pain Patient History Medical History (Updated 02/04/22 @ 22:07 by ABHISHEK Diaz) CAD (coronary artery disease) Hyperlipidemia Hypertension Obesity Social History Smoking Status: Never smoker Preferred Language: Estonian Feels Safe at Home: Yes Review of Systems Review of Systems: REVIEW OF SYSTEMS: Constitutional: No fever, sweats or chills Eyes: (+) vision loss to right eye, ENT: normal hearing, no trouble swallowing Respiratory: No cough, sputum, dyspnea at rest or on exertion Cardiovascular: No chest pain, tightness or palpitations Abdomen: No pain, nausea, vomiting, diarrhea or constipation Musculoskeletal: No joint pain, calf pain, swelling Neurologic: (+) weakness, numbness/tingling, No balance problems Psychiatric: No anxiety or depression Skin: No rash or itch Physical Exam Physical Exam: PHYSICAL EXAM: General: awake, alert, no apparent distress Neuro: AAO x 3, PEERLA, vision intact, no hemianopsia, speech clear and appropriate, without facial droop, strength intact bilaterally 5/5, sensation intact and equal all extremities and dermatomes, no pronator drift, no ataxia Chest: equal rise and fall of the chest, no accessory muscle use, no heaves or thrills, Clear to auscultation, on room air, Cardiac: Regular rate and rhythm, telemetry reviewed- NSR, skin warm dry, cap refill <3 seconds, peripheral pulses +2 no JVD, no murmur, no edema GI: NABS x 4 quadrants, soft, nontender to palpation, no rebound, guarding or tenderness : Spontaneously voiding, no pain, no CVA tenderness, Extremities: Normal inspection, no peripheral edema or erythema, calfs nontender to palpation Psych: Normal mood and affect Skin: no rash or erythema Results & Data Results & Data ([facility]) Vital Signs (Past 12 Hours) Vital Signs Temp Pulse Pulse Resp BP BP Pulse Ox 02/04/22 21:45 70 16 113/64 97 02/04/22 21:30 78 20 105/66 96 02/04/22 21:15 73 18 109/61 91 02/04/22 21:00 72 16 127/63 92 02/04/22 20:45 72 20 106/61 94 02/04/22 20:30 71 18 121/61 95 02/04/22 20:14 78 16 144/77 H 97 02/04/22 20:00 75 18 132/86 95 02/04/22 19:28 36.8 C 80 20 128/89 93 O2 Del Method O2 Flow Rate 02/04/22 21:45 Nasal Cannula 2 02/04/22 21:30 Nasal Cannula 2 02/04/22 21:15 Room Air 02/04/22 21:00 Room Air 02/04/22 20:45 Room Air 02/04/22 20:30 Room Air 02/04/22 20:14 Room Air 02/04/22 20:00 Room Air 02/04/22 19:28 Room Air Laboratory Results Abnormal lab results 02/04/22 02/04/22 02/04/22 Range/Units 19:00 19:00 19:43 Lymph # (Auto) 4.08 H (1.2-3.4) K/uL Immature Gran # (Auto) 0.03 H (0.00-0.02) K/uL Anion Gap 14 H (3-11) Glucose 135 H (70-99(Fasting)) mg/dl Lactate 4.7 H* (0.4-2.0) mmol/L Total Bilirubin 1.1 H (0.2-1.0) mg/dl Ur Specific [place] (1.000-1.030) Urine Protein (Negative) Urine Blood (Negative) Urine WBC (Auto) (0-5) /hpf Urine RBC (Auto) (0-4) /hpf U Epithel Cells (Auto) (0-5) /lpf Urine Bacteria (Auto) (Negative) 02/04/22 Range/Units 20:35 Lymph # (Auto) (1.2-3.4) K/uL Immature Gran # (Auto) (0.00-0.02) K/uL Anion Gap (3-11) Glucose (70-99(Fasting)) mg/dl Lactate (0.4-2.0) mmol/L Total Bilirubin (0.2-1.0) mg/dl Ur Specific [place] > 1.045 H (1.000-1.030) Urine Protein Trace H (Negative) Urine Blood 1+ H (Negative) Urine WBC (Auto) 5-10 H (0-5) /hpf Urine RBC (Auto) 5-10 H (0-4) /hpf U Epithel Cells (Auto) >30 H (0-5) /lpf Urine Bacteria (Auto) 1+ H (Negative) Diagnostic Findings Head CT 02/04/22 19:12 CT angio head w con, CT angio neck with con, CT head/brain wo con CLINICAL HISTORY: 56 years-old Female with Stroke Like Symptoms. Acute strokelike symptoms COMPARISON STUDY: CTA had and neck of same day TECHNIQUE: Unenhanced axial CT scan of the brain is performed. Subsequently, following the IV administration of 112 cc of Optiray, CT angiogram of the head and neck was performed from the aortic arch to the skull apex. Images are reviewed in the axial, sagittal, and coronal planes. 3-D MIPS images are created and assessed. IV contrast was administered without complication. All measurements were obtained according to NASCET criteria. A dose lowering technique was utilized adhering to the principles of ALARA. FINDINGS: CT BRAIN: There is no acute intracranial hemorrhage, midline shift, hydrocephalus, intracranial mass, territorial ischemia or abnormal extra-axial collections. No abnormal intra-axial or extra-axial enhancement. Mild involutional changes. Cerebral vascular calcifications. Mastoid air cells and middle ear cavities are clear. No calvarial fracture. Paranasal sinuses are clear. CT ANGIOGRAM OF THE HEAD AND NECK: Prior median sternotomy with CABG. Three-vessel morphology of the thoracic aortic arch. Patency of the innominate and imaged subclavian arteries. The common and internal carotid arteries are patent. Atherosclerotic plaque of the carotid bulbs results in less than 50% stenosis bilaterally. The bilateral anterior and middle cerebral arteries are also patent. Dominant left vertebral artery. Atherosclerotic plaque of the left greater the right vertebral arteries without high-grade stenosis. The basilar artery is patent. Mild to moderate multifocal luminal narrowing throughout the right posterior cerebral artery. Age-indeterminate occlusion of the P1 segment of the left posterior cerebral artery on image 97 series 5 mild distal reconstitution suggested. Cerebral venous sinuses are patent. Otherwise unremarkable exam without aneurysm or dissection. Thorax. The lung apices appear clear. Unremarkable soft tissues of the neck. Degenerative changes of the cervical spine. IMPRESSION: 1. No acute intracranial abnormality identified. 2. 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 3. Mild atherosclerotic plaque of the carotid bulbs and proximal cervical segments of the internal carotid arteries without significant stenosis. ACT 112: Negative or not required by law. The above report was generated using voice recognition software. It may contain grammatical, syntax or spelling errors. Electronically signed by: Drake Nevarez M.D. 02/04/2022 7:51 PM Head CTA 02/04/22 19:12 CT angio head w con, CT angio neck with con, CT head/brain wo con CLINICAL HISTORY: 56 years-old Female with Stroke Like Symptoms. Acute strokelike symptoms COMPARISON STUDY: CTA had and neck of same day TECHNIQUE: Unenhanced axial CT scan of the brain is performed. Subsequently, following the IV administration of 112 cc of Optiray, CT angiogram of the head and neck was performed from the aortic arch to the skull apex. Images are reviewed in the axial, sagittal, and coronal planes. 3-D MIPS images are created and assessed. IV contrast was administered without complication. All measurements were obtained according to NASCET criteria. A dose lowering technique was utilized adhering to the principles of ALARA. FINDINGS: CT BRAIN: There is no acute intracranial hemorrhage, midline shift, hydrocephalus, intracranial mass, territorial ischemia or abnormal extra-axial collections. No abnormal intra-axial or extra-axial enhancement. Mild involutional changes. Cerebral vascular calcifications. Mastoid air cells and middle ear cavities are clear. No calvarial fracture. Paranasal sinuses are clear. CT ANGIOGRAM OF THE HEAD AND NECK: Prior median sternotomy with CABG. Three-vessel morphology of the thoracic aortic arch. Patency of the innominate and imaged subclavian arteries. The common and internal carotid arteries are patent. Atherosclerotic plaque of the carotid bulbs results in less than 50% stenosis bilaterally. The bilateral anterior and middle cerebral arteries are also patent. Dominant left vertebral artery. Atherosclerotic plaque of the left greater the right vertebral arteries without high-grade stenosis. The basilar artery is patent. Mild to moderate multifocal luminal narrowing throughout the right posterior cerebral artery. Age-indeterminate occlusion of the P1 segment of the left posterior cerebral artery on image 97 series 5 mild distal reconstitution suggested. Cerebral venous sinuses are patent. Otherwise unremarkable exam without aneurysm or dissection. Thorax. The lung apices appear clear. Unremarkable soft tissues of the neck. Degenerative changes of the cervical spine. IMPRESSION: 1. No acute intracranial abnormality identified. 2. 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 3. Mild atherosclerotic plaque of the carotid bulbs and proximal cervical segments of the internal carotid arteries without significant stenosis. ACT 112: Negative or not required by law. The above report was generated using voice recognition software. It may contain grammatical, syntax or spelling errors. Electronically signed by: Drake Nevarez M.D. 02/04/2022 7:51 PM Neck CTA 02/04/22 19:12 CT angio head w con, CT angio neck with con, CT head/brain wo con CLINICAL HISTORY: 56 years-old Female with Stroke Like Symptoms. Acute strokelike symptoms COMPARISON STUDY: CTA had and neck of same day TECHNIQUE: Unenhanced axial CT scan of the brain is performed. Subsequently, following the IV administration of 112 cc of Optiray, CT angiogram of the head and neck was performed from the aortic arch to the skull apex. Images are reviewed in the axial, sagittal, and coronal planes. 3-D MIPS images are created and assessed. IV contrast was administered without complication. All measurements were obtained according to NASCET criteria. A dose lowering technique was utilized adhering to the principles of ALARA. FINDINGS: CT BRAIN: There is no acute intracranial hemorrhage, midline shift, hydrocephalus, intracranial mass, territorial ischemia or abnormal extra-axial collections. No abnormal intra-axial or extra-axial enhancement. Mild involutional changes. Cerebral vascular calcifications. Mastoid air cells and middle ear cavities are clear. No calvarial fracture. Paranasal sinuses are clear. CT ANGIOGRAM OF THE HEAD AND NECK: Prior median sternotomy with CABG. Three-vessel morphology of the thoracic aortic arch. Patency of the innominate and imaged subclavian arteries. The common and internal carotid arteries are patent. Atherosclerotic plaque of the carotid bulbs results in less than 50% stenosis bilaterally. The bilateral anterior and middle cerebral arteries are also patent. Dominant left vertebral artery. Atherosclerotic plaque of the left greater the right vertebral arteries without high-grade stenosis. The basilar artery is patent. Mild to moderate multifocal luminal narrowing throughout the right posterior cerebral artery. Age-indeterminate occlusion of the P1 segment of the left posterior cerebral artery on image 97 series 5 mild distal reconstitution suggested. Cerebral venous sinuses are patent. Otherwise unremarkable exam without aneurysm or dissection. Thorax. The lung apices appear clear. Unremarkable soft tissues of the neck. Degenerative changes of the cervical spine. IMPRESSION: 1. No acute intracranial abnormality identified. 2. 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 3. Mild atherosclerotic plaque of the carotid bulbs and proximal cervical segments of the internal carotid arteries without significant stenosis. ACT 112: Negative or not required by law. The above report was generated using voice recognition software. It may contain grammatical, syntax or spelling errors. Electronically signed by: Drkae Nevarez M.D. 02/04/2022 7:51 PM Medications Administered Home Medications acetaminophen 500 mg tablet 1,000 mg PO TID PRN Pain 02/04/22 [History Confirmed 02/04/22] amlodipine 5 mg tablet 5 mg PO DAILY 02/04/22 [History Confirmed 02/04/22] aspirin 81 mg tablet,delayed release 81 mg PO DAILY 02/04/22 [History Confirmed 02/04/22] atorvastatin 80 mg tablet 80 mg PO DAILY 02/04/22 [History Confirmed 02/04/22] buspirone 5 mg tablet 5 mg PO BID 02/04/22 [History Confirmed 02/04/22] citalopram 40 mg tablet 40 mg PO DAILY 02/04/22 [History Confirmed 02/04/22] ezetimibe 10 mg tablet 10 mg PO DAILY 02/04/22 [History Confirmed 02/04/22] fenofibrate 54 mg tablet 54 mg PO DAILY 02/04/22 [History Confirmed 02/04/22] furosemide 20 mg tablet 20 mg PO DAILY PRN edema,fluid accumulation or wt gain 02/04/22 [History Confirmed 02/04/22] lisinopril 2.5 mg tablet 2.5 mg PO DAILY 02/04/22 [History Confirmed 02/04/22] metoprolol succinate 25 mg tablet,extended release 24 hr 12.5 mg PO DAILY 02/04/22 [History Confirmed 02/04/22] nitroglycerin 0.4 mg sublingual tablet (Nitrostat) 0.4 mg sublingual Q5W PRN Chest Pain 02/04/22 [History Confirmed 02/04/22] Active Medications Aspirin (No Aspirin Within 24hrs Of Thrombolytic-Stroke) 1 each PO UD CHIARA Stop: 02/05/22 19:44 Buspirone HCl (Buspirone 5 Mg Tab) 5 mg PO TID CHIARA Stop: 03/06/22 20:59 Last Admin: 02/04/22 20:56 Dose: 5 mg Sodium Chloride (Nss 1000ml) 1,000 mls @ 50 mls/hr IV .Q20H CHIARA Stop: 03/06/22 19:14 Last Infusion: 02/04/22 20:29 Dose: 100 mls/hr Buspirone HCl (Buspirone 5 Mg Tab) 5 mg PO TID [facility] Stop: 03/06/22 20:59 Last Admin: 02/04/22 20:56 Dose: 5 mg Documented By: JENNYFER Sodium Chloride (Nss 1000ml) 1,000 mls @ 50 mls/hr IV .Q20H CHIARA Stop: 03/06/22 19:14 Last Infusion: 02/04/22 20:29 Dose: 100 mls/hr Documented By: Admin: 02/04/22 19:49 Dose: 50 mls/hr Documented By: JENNYFER Discontinued Medications Tenecteplase 20 mg/ Syringe 4 mls @ 48 mls/min IV NOW ONE; Protocol Stop: 02/04/22 19:57 Last Admin: 02/04/22 19:59 Dose: 48 mls/min Documented By: JENNYFER Co-signed By: ELI Magnesium Sulfate/Dextrose (Magnesium Sulfate / D5w) 1 gm in 100 mls @ 200 mls/hr IV Q30M [facility] Stop: 02/04/22 21:17 Last Infusion: 02/04/22 21:32 Dose: 0 mls/hr Documented By: Admin: 02/04/22 20:55 Dose: 200 mls/hr Documented By: Infusion: 02/04/22 20:55 Dose: 200 mls/hr Documented By: Admin: 02/04/22 20:25 Dose: 200 mls/hr Documented By: JENNYFER Sodium Chloride (Nss) 500 mls @ 999 mls/hr IV .Q31M ONE Stop: 02/04/22 20:48 Last Infusion: 02/04/22 20:29 Dose: 0 mls/hr Documented By: Admin: 02/04/22 20:25 Dose: 999 mls/hr Documented By: JENNYFER Ioversol (Optiray 320 500ml) 112 ml IV ONCE ONE Stop: 02/04/22 19:19 Last Admin: 02/04/22 19:19 Dose: 112 ml Documented By: KENIA Lorazepam (Lorazepam 1 Mg/1 Ml Syr) 1 mg IV NOW STA; Protocol Stop: 02/04/22 20:27 Last Admin: 02/04/22 20:31 Dose: 1 mg Documented By: JENNYFER Metoclopramide HCl (Metoclopramide Hcl Inj 5 Mg/Ml 2 Ml Vial) 10 mg IV NOW STA Stop: 02/04/22 19:54 Last Admin: 02/04/22 19:58 Dose: 10 mg Documented By: JENNYFER Miscellaneous (Stat Iv) 1 each N/A NOW STA Stop: 02/04/22 19:46 Last Admin: 02/04/22 19:49 Dose: 1 each Documented By: JENNYFER Ondansetron HCl (Ondansetron Inj 2 Mg/Ml 2 Ml Vial) 4 mg IV NOW STA Stop: 02/04/22 19:39 Last Admin: 02/04/22 19:45 Dose: 4 mg Documented By: JENNYFER Ondansetron HCl (Ondansetron Inj 2 Mg/Ml 2 Ml Vial) Confirm Administered Dose 4 mg .ROUTE .STK-MED ONE Stop: 02/04/22 19:40 Last Admin: 02/04/22 19:49 Dose: Not Given Documented By: JENNYFER Sodium Chloride (Sodium Chloride 0.9% 10ml Flush) 20 ml IV NOW STA Stop: 02/04/22 19:46 Last Admin: 02/04/22 20:00 Dose: 20 ml Documented By: JENNYFER ECG Additional Comments: Sinus rhythm with occasional Premature ventricular complexes Cannot rule out Inferior infarct , age undetermined Anterior infarct , age undetermined T wave abnormality, consider lateral ischemia Abnormal ECG No previous ECGs available Coding Level of Care Code Critical Care 1st 30-74 mins Diagnoses Heart disease I51.9 Hypertension I10 CAD (coronary artery disease) I25.10 Hyperlipidemia E78.5 Obesity E66.9
[2022-02-04] MEDS ORDERED: PHARMACIST DISCHARGE MED REC CONSULT PRN (22:37)
[2022-02-04] MEDS ORDERED: cefTRIAXone SODIUM 2,000 MG in DEXTROSE 5% 50 ML IV SCH (23:00)
--- NOTE | 2022-02-05 | History and Physical Report ---
DATE OF ADMISSION: 02/04/2022 CHIEF COMPLAINT: Acute CVA. HISTORY OF PRESENT ILLNESS: A 56-year-old female with past medical history significant for premature coronary artery disease, history of IA at age 32, status post CABG in 2000, status post repeated CABG in December 2004 in [place] and cardiac catheterization in 2013, 3 out of 4 grafts were patent with SVG to OM having 99% stenosis and had a drug-eluting stent, ischemic cardiomyopathy, EF normalized in April 2020, 2018 cardiac catheterization notable for occluded stent in the SVG to OM, medical management recommended, history of hypertension, hyperlipidemia, history of bradycardia, Holter in March 2021 was acceptable with lowest heart rates being in the 52/min, no significant arrhythmia was found. History of menorrhagia, history of endometrial polyps, history of marijuana use, history of depression, presents with stroke-like symptoms. The patient around 6 p.m., noticed some vision loss in the right eye. Then experienced numbness in the right side face, hand and leg and then became on right side and her brought her in here. Stroke alert was called. Imaging studies show occlusion of the P1 segment of the left posterior cerebral artery with mild distal reconstitution and she was status post tPA. Currently, her symptoms are much improved. She can feel her right side and she can move her extremities and after school caregiver her hands and lift her legs and hold it there, seems to getting back to baseline. Speech is clear, alert and oriented. Denies any headache. No neck pain, no chest pain, no back pain, no belly pain, no leg pains. Before this, she was ambulating okay and currently her vision is improving. She says she only has some mild blurred visions on the lateral aspect of the right eye. No double vision, no runny nose, no sore throat, no cough, no fevers, no shortness of breath, no difficulty swallowing. As per the patient, before this happened, she was eating and drinking okay. No belly pain. No burning micturition. Normal bladder and bowel movements. Hemodynamically stable. ALLERGIES: BUPROPION. PAST MEDICAL HISTORY: As mentioned above. PAST SURGICAL HISTORY: Cardiac catheterization, cardiac stent placement, hysteroscopy with biopsy. MEDICATIONS: The patient is on Tylenol 1000 mg p.o. t.i.d. p.r.n., amlodipine 5 mg p.o. daily, aspirin 81 mg p.o. daily, atorvastatin 80 mg p.o. daily, buspirone 5 mg p.o. b.i.d., citalopram 40 mg p.o. daily, ezetimibe 10 mg p.o. daily, fenofibrate 54 mg p.o. daily, furosemide 20 mg p.o. daily p.r.n., lisinopril 2.5 mg p.o. daily, metoprolol succinate 12.5 mg p.o. daily, nitroglycerin 0.4 mg sublingual p.r.n. FAMILY HISTORY: Significant for mother has diabetes, heart disorder, hypertension. Brother has hypertension. Father has hypertension. SOCIAL HISTORY: . Quit smoking in 2008, smoked half pack a day for 23 years. No alcohol. Uses marijuana. REVIEW OF SYSTEMS: As per HPI. Rest of review of systems is negative. PHYSICAL EXAMINATION: GENERAL: The patient is of moderate build, not in acute distress. VITAL SIGNS: Temperature 36.8, pulse 70, respiratory rate 16, blood pressure 113/64, oxygen 97% on 2 liters. HEENT: Extraocular muscles intact. No facial droop. NECK: No JVD. No neck masses. No carotid bruits. CARDIOVASCULAR: S1 and S2 heard. Regular rate and rhythm. No murmur, no gallop. RESPIRATORY SYSTEM: Normal AP diameter. No accessory muscle use. No wheezing, no crackles. ABDOMEN: Soft, bowel sounds present, nontender, no distention. CENTRAL NERVOUS SYSTEM: Alert and oriented. No facial droop. Speech is clear. Tongue is midline. Can clench the teeth, close her eyes, hand after school caregiver and power 5/5 in upper extremities, can lift the legs and hold there for several seconds. No pronator drift. Coordination of movements normal. [id number] testing normal. Sensation is intact. Position sense intact. EXTREMITIES: No edema, no erythema. LABORATORY DATA: WBC 10.8, hemoglobin 13.9, hematocrit 40.1, platelets 316. PT 11, INR 1, APTT 26.2, Sodium 137, potassium 3.5, chloride 102, bicarbonate 21, BUN 18, creatinine 1, serum glucose 135, lactate 4.7, calcium 10, magnesium 1.7, total bilirubin 1.1, AST 22, ALT 18, alkaline phosphatase 72. Troponin I high sensitivity 5.9. Urinalysis positive for leukocyte esterase and +1 bacteria. SARS-CoV-2 rapid test negative. IMAGING DATA: CTA of the head and neck,, occlusion of the P1 segment of the left posterior cerebral artery with mild distal reconstitution, mild atherosclerotic plaque of the carotid bulbs and proximal cervical segments of the internal carotid arteries without significant stenosis. . Chest x-ray, no obvious acute findings, some cardiomegaly. ASSESSMENT AND PLAN: This is a 56-year-old female who presents with acute cerebrovascular accident. 1. Acute cerebrovascular accident with right sided weakness and right eye lateral vision loss. Imaging studies showing occlusion of the P1 segment of the left posterior cerebral artery, status post tPA. Symptoms are much improving, hemodynamically stable. [facility] neurology recommended to continue metoprolol and statin home meds and hold all other meds.. No other home medications were given. No aspirin for 24 hours. Repeat CThead after 24 hours and to follow MRI scan. We will follow echo. Neurology consult, speech consult. Pt/ot. Close monitor in ICU..Permissive HTN. OK for systolic blood pressure up to 180. Closely monitor in the ICU. Giving fluids, keep her n.p.o. except meds. Speech evaluation, PT, OT evaluation. Neurology evaluation. Appreciate Critical Care help. 2 Possible urinary tract infection. The patient has no symptom. Empirically started on Rocephin. Follow the cultures. 3. Elevated lactic acid We will follow the repeat lactic acid, does not seem to be in obvious sepsis. 4. History of premature coronary artery disease status post CABG, two times and also stent placements. Currently giving only statin and beta lupe. Holding her aspirin for now as the patient is status post tPA. The patient is asymptomatic. Troponin I high sensitivity 5.9. We will follow echocardiogram. 5. Hypertension, we will allow permissive hypertension. Monitor with metoprolol. Hold her amlodipine, lisinopril. 6. Hyperlipidemia. Continue statin. Holding fenofibrate and ezetimibe for now. 7 Depression. Holding citalopram for now. Some confusion and agitation in the ER, was thought to be from the stroke and recommended buspirone 5 mg p.o. t.i.d. and instead of Ativan. The patient is already on buspirone 5 mg p.o. b.i.d. at home and we will give t.i.d. while she is here in the hospital. 8. Deep venous thrombosis prophylaxis: Sequential compression devices for now. DISPOSITION: Closely monitor in the ICU. Level 1 full code. Job ID: [id number] MTDD
[2022-02-05] MEDS ORDERED: GADOBUTROL 65ML VIAL IV ONE (00:53)
[2022-02-05] MEDS: SODIUM CHLORIDE 0.9% 1000ML 1,000 ML IV SCH ×2 (01:10→10:33)
[2022-02-05] MEDS: ICU ELECTROLYTE REPLACEMENT PROTOCOL SCH ×2 (04:46→17:32)
--- NOTE | 2022-02-05 07:53 | Critical Care Progress Note ---
Date of Service February 05, 2022 Assessment & Plan (1) Cerebrovascular accident: (2) Hypertension: (3) Obesity: (4) Hyperlipidemia: (5) CAD (coronary artery disease): Plan Reason Critically Ill: 52 YOF arrived to [facility] as stroke alert for onset of loss of sensation to right side, weakness right side, and vision loss of right side. She received TNKase at 1956 following cerebral imaging and tele stroke evaluation. Patient feels her symptoms have resolved and is back to baseline. She will be admitted to ICU for 24 hour monitoring post TNKase, neurological/hemodynamic monitoring. Neuro -Stroke, Status post TNKase Continue neurological exams q1 hour CT head non-con for any changes and 24 hour post CAM ICU: Negative - NIHSS- 0 - CVA symptoms while on ASA - defer to neurology and primary service for additional antiplatelets - Standard BP goals <180/105 - Already on high dose statin and fenofibrate - PT/OT consultation -Follow-up echo - denies JAMES/CPAP usage at home MRI brain showing subacute ischemia in the medial left temporal cortex and left thalamus Cardiac -CAD, CABG, Coronary artery stents -Early CAD with bypass grafting and stenting to [place] arteries - Continued HDS - Continue ASA- no aspirin for 24 hours - Telemetry for 24 follow for any dysrhythmias Respiratory - No acute needs - Recommend screening for JAMES for further prevention --Ex-smoker [id number] smoking history approximately Quit at the age of 46 GI - NO acute needs Diet regular- passed bedside swallow RENAL/LYTES - No acute needs - electrolyte protocol -UTI - uncomplicated UTI Patient asymptomatic No need for antibiotics ENDO - ICU hypoglycemia protocol HEME - Monitor H&H ID - Asymptomatic bacteriuria Leukocyte esterase negative No need for antibiotics --Prophylaxis VTE: IPC GI: None Lines: Peripheral Diet: Cardiac Plan: In/out +103 mL, urine output 700 HAGMA Resume patient's BuSpar as well as escitalopram Emotional support given to the patient Labs are pending for today. Continue with neurochecks. Will repeat lipid profile in the morning Patient is due for repeat CT chest to be done around 8 PM. If negative can be downgraded to medical floor Case was discussed with Dr. Vilchis Please note the above document was generated using voice recognition software. It may contain grammatical, syntax or spelling errors.Any formal questions or concerns about the content, text or information contained within the body of this dictation should be directly addressed to the provider for clarification. Admission and Anticipated Discharge Date Admission Date: February 04, 2022 Subjective Patient seen and examined at bedside. No acute distress, no adverse events overnight. Patient was emotional just prior to me examining her Denies any chest pain, no shortness of breath, no headache, no blurry vision No dizziness No nausea vomiting No shortness of breath. Review of Systems Review of Systems: All systems reviewed & are unremarkable except as noted in HPI & below Physical Exam Physical Exam: Constitutional: No acute distress HEENT: EOMI, PERRLA Respiratory system: Decreased air entry bilaterally, no wheeze, no rhonchi, mild crackles bilateral lower lobes CVS: S1-S2 positive, no murmurs or gallops Abdomen: Soft, nontender, nondistended, positive bowel sounds x4 Extremities: +2 pulses bilaterally radialis/ dorsalis pedis, no cyanosis, no edema, strength 5 out of 5 bilateral upper and lower extremity Neuro: Awake alert oriented x3 Psych: Normal mood and affect G/U: No Villalobos Skin: no rashes, warm and dry Lymphatic: no cervical or axillary lymphadenopathy Results & Data Results & Data ([facility]) Vital Signs (Past 12 Hours) Vital Signs Temp Pulse Pulse Resp BP BP Pulse Ox 02/05/22 07:07 36.7 C 58 L 14 131/66 97 02/05/22 06:07 36.7 C 55 L 12 131/72 96 02/05/22 05:07 36.7 C 54 L 14 133/60 97 02/05/22 04:07 36.7 C 51 L 16 110/65 97 02/05/22 03:37 36.7 C 53 L 16 115/62 97 02/05/22 03:07 36.6 C 58 L 16 109/57 L 97 02/05/22 02:37 36.6 C 69 14 111/69 97 02/05/22 02:07 36.8 C 61 18 114/63 96 02/05/22 00:00 57 L 02/05/22 01:37 36.6 C 59 L 20 114/59 L 96 02/05/22 01:07 36.6 C 65 14 118/69 94 02/05/22 00:07 36.7 C 63 20 116/64 98 02/04/22 23:37 36.8 C 58 L 18 95/57 L 95 02/04/22 23:07 36.5 C 64 16 112/62 96 02/04/22 22:52 36.5 C 69 21 111/66 96 02/04/22 22:37 36.6 C 70 20 123/70 92 02/04/22 22:16 64 18 111/69 95 02/04/22 22:00 66 16 114/64 96 02/04/22 21:45 70 16 113/64 97 02/04/22 21:30 78 20 105/66 96 02/04/22 21:15 73 18 109/61 91 02/04/22 21:00 72 16 127/63 92 02/04/22 20:45 72 20 106/61 94 02/04/22 20:30 71 18 121/61 95 02/04/22 20:14 78 16 144/77 H 97 02/04/22 20:00 75 18 132/86 95 O2 Del Method O2 Flow Rate 02/05/22 07:07 Nasal Cannula 2 02/05/22 06:07 Nasal Cannula 2 02/05/22 05:07 Nasal Cannula 2 02/05/22 04:07 Nasal Cannula 2 02/05/22 03:37 Nasal Cannula 2 02/05/22 03:07 Nasal Cannula 2 02/05/22 02:37 Nasal Cannula 2 02/05/22 02:07 Nasal Cannula 2 02/05/22 00:00 02/05/22 01:37 Nasal Cannula 2 02/05/22 01:07 Nasal Cannula 2 02/05/22 00:07 Nasal Cannula 2 02/04/22 23:37 Nasal Cannula 2 02/04/22 23:07 Nasal Cannula 2 02/04/22 22:52 Nasal Cannula 2 02/04/22 22:37 Nasal Cannula 02/04/22 22:16 Nasal Cannula 2 02/04/22 22:00 Nasal Cannula 2 02/04/22 21:45 Nasal Cannula 2 02/04/22 21:30 Nasal Cannula 2 02/04/22 21:15 Room Air 02/04/22 21:00 Room Air 02/04/22 20:45 Room Air 02/04/22 20:30 Room Air 02/04/22 20:14 Room Air 02/04/22 20:00 Room Air Laboratory Results 02/04/22 19:00 02/04/22 19:00 Coding Level of Care Code 19259 Subseq Hosp Care Lvl 3 Diagnoses Cerebrovascular accident I63.9 Hypertension I10 Obesity E66.9 Hyperlipidemia E78.5 CAD (coronary artery disease) I25.10
--- NOTE | 2022-02-05 08:37 | XRay Report ---
SINGLE VIEW CHEST CLINICAL HISTORY: Strokelike symptoms. FINDINGS: An AP, portable, upright chest radiograph is obtained. No prior studies are available for c omparison at the time of dictation. The examination is degraded by portable technique and apical lord otic positioning. The patient is status post midline sternotomy. The heart is enlarged. The pulmonar y vasculature is noncongested. The lungs and pleural spaces are clear noting mild bibasilar atelectas is. No pneumothorax is seen. The skeletal structures are osteopenic. The bony thorax is grossly intac t. IMPRESSION: Cardiomegaly with no acute cardiopulmonary abnormality. ACT 112: Negative or not required by law. Electronically signed by: Chato Garcia M.D. 02/05/2022 8:36 AM
--- NOTE | 2022-02-05 10:25 | Magnetic Resonance Report ---
MRI OF THE BRAIN COMBO CLINICAL HISTORY: Stroke. COMPARISON STUDY: CT of the brain dated 02/04/2022. TECHNIQUE: MRI of the brain was performed utilizing various T1 and T2-weighted sequences in the axial , sagittal, and coronal planes. Contrast-enhanced sequences were acquired following the administratio n of 8 cc of Gadavist. The examination is degraded by motion artifact. FINDINGS: Brain parenchyma: There are foci of restricted diffusion within the left thalamus and the medial left temporal cortex consistent with acute to subacute ischemia. No additional foci of restricted diffusi on are identified. There is no evidence of hemorrhage or mass effect. No enhancing mass lesion is [place] ntified on the postcontrast images. There is minimal microangiopathic change. No extra-axial fluid c ollection is seen. The cerebellar tonsils are normal in configuration. Ventricles, sulci, and cisterns: Normal in configuration. Pituitary and sella: Partially empty sella is incidentally noted. Intracranial vasculature: Normal flow voids are maintained at the skull base. Orbits: The bony orbits are grossly intact. Orbital contents are normal in appearance. Sinuses and mastoids: Clear. Calvarium: Unremarkable. Cervical cord: Partially visualized cervical spinal cord is normal in morphology and signal intensity . IMPRESSION: 1. Foci of restricted diffusion within the left thalamus and the medial left temporal cortex are cons istent with acute to subacute ischemia. 2. No additional foci of ischemia are suggested. 3. There is no hemorrhage or mass effect. ACT 112: Negative or not required by law. Electronically signed by: Chato Garcia M.D. 02/05/2022 10:24 AM
[2022-02-05] MEDS: ICU Protocol for HYPERglycemia SCH ×4 (10:33→21:45)
[2022-02-05] MEDS: METOPROLOL SUCC 25MG EXT REL TAB PO SCH (10:45)
[2022-02-05] MEDS: ATORVASTATIN 40 MG TAB PO SCH (10:46)
[2022-02-05] MEDS: busPIRone 5 MG TAB PO SCH ×2 (10:53→20:53)
[2022-02-05] MEDS: FENOFIBRATE NANOCRYSTALLIZED 48 MG TABLET PO SCH (10:53)
[2022-02-05] MEDS: CITALOPRAM 40 MG TAB PO SCH (10:53)
--- NOTE | 2022-02-05 10:57 | Electrocardiogram Report ---
Test Reason : Blood Pressure : / mmHG Vent. Rate : 083 BPM Atrial Rate : 083 BPM P-R Int : 160 ms QRS Dur : 094 ms QT Int : 412 ms P-R-T Axes : 036 -02 101 degrees QTc Int : 484 ms Poor data quality, interpretation may be adversely affected Sinus rhythm with occasional Premature ventricular complexes Cannot rule out Inferior infarct , age undetermined T wave abnormality, consider lateral ischemia Abnormal ECG No previous ECGs available Confirmed by Stevan Dobbs ([id number]) on 02/05/2022 10:56:57 AM Referred By: REFERRED SELF Confirmed By:Luis Dobbs
--- NOTE | 2022-02-05 12:18 | Hospitalist Progress Note ---
Date of Service February 05, 2022 Assessment & Plan (1) Cerebrovascular accident: Plan: This morning her neurologic deficits have resolved. She is eating. Has not tried to ambulate yet but feels confident in it. Echocardiogram pending. Previously on aspirin which has been held for 24 hours. Home medications include high-dose statin and Zetia. Neurology consulted and will follow for recommendations regarding additional antiplatelet therapy moving forward. R epeat head CT this evening after TN kinase. Continue monitoring in the ICU for now. Elevated lactate was present likely related to stroke. (2) Hypertension: Plan: Chronic, at goal. Amlodipine and lisinopril have been held in order to observe permissive hypertension up to systolic blood pressure of 180/105 post thrombolytic therapy. (3) Asymptomatic bacteriuria: Plan: no UTI symptoms, contaminated UA sample. She was started on Rocpehin for empiric coverage. Will follow culture results and clinical improvement. (4) Obesity: Plan: Lifestyle changes recommended. (5) Hyperlipidemia: Plan: chronic, lipid panel in am. Cont current medications. (6) CAD (coronary artery disease): Plan: chronic, stable. Cont medical management of cardiac disease. (7) DVT prophylaxis: Plan: SCDs/ambulation Full Code Dispo- to home in 1-2 days Petra Vilchis DO [facility] Hospitalist Admission and Anticipated Discharge Date Admission Date: February 04, 2022 Subjective 52-year-old female presents with acute stroke in the left thalamus and medial left temporal cortex. She has a history of significant coronary disease status post CABG with revision and 2 cardiac caths after that, the last in 2019. She denies any chest pain. 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 She received TN kinase and reports a full resolution of symptoms. She is at her baseline, however nurse notes that she cannot appropriately identify the year. She is very emotionally stressed this morning because of having the stroke. Denies any shortness of breath. Mild posterior headache present. Review of Systems Review of Systems: All systems were reviewed and negative except as indicated above. Physical Exam Physical Exam: CONSTITUTIONAL: WNWD, vitals as above, generally well- appearing, NAD EYES: EOMI bilaterally, PERRL, normal conjunctivae, no scleral icterus ENT: external ear and nose normal, oropharynx clear NECK: trachea midline RESPIRATORY: clear to auscultation bilaterally, no crackles, rales or wheezes, normal respiratory effort CARDIOVASCULAR: regular rate and rhythm, S1 and 2 heard without murmurs, gallops or rubs, no JVD, no peripheral edema CHEST: inspection of chest was normal GASTROINTESTINAL: soft, nontender, ND, no guarding MUSCULOSKELETAL: strength 5/5 throughout, head is normocephalic and atraumatic SKIN: warm and dry NEUROLOGIC: CN 2-12 grossly intact, no sensory deficit, normal cognition, normal speech, no tremor PSYCHIATRIC: alert cooperative and oriented to person, place and time. Results & Data Results & Data ([facility]) Vital Signs (Past 12 Hours) Vital Signs Temp Pulse Pulse Pulse Resp BP Pulse Ox 02/05/22 11:07 36.7 C 53 L 15 123/72 93 02/05/22 10:07 36.7 C 52 L 14 117/65 94 02/05/22 08:00 02/05/22 08:00 51 L 02/05/22 09:07 36.7 C 64 18 134/73 94 02/05/22 08:07 36.9 C 56 L 16 122/63 97 02/05/22 08:07 36.9 C 02/05/22 07:07 36.7 C 58 L 14 131/66 97 02/05/22 06:07 36.7 C 55 L 12 131/72 96 02/05/22 05:07 36.7 C 54 L 14 133/60 97 02/05/22 04:07 36.7 C 51 L 16 110/65 97 02/05/22 03:37 36.7 C 53 L 16 115/62 97 02/05/22 03:07 36.6 C 58 L 16 109/57 L 97 02/05/22 02:37 36.6 C 69 14 111/69 97 02/05/22 02:07 36.8 C 61 18 114/63 96 02/05/22 01:37 36.6 C 59 L 20 114/59 L 96 02/05/22 01:07 36.6 C 65 14 118/69 94 02/05/22 00:07 36.7 C 63 20 116/64 98 O2 Del Method O2 Flow Rate 02/05/22 11:07 Room Air 02/05/22 10:07 Room Air 02/05/22 08:00 Nasal Cannula 2 02/05/22 08:00 02/05/22 09:07 Room Air 02/05/22 08:07 Nasal Cannula 2 02/05/22 08:07 02/05/22 07:07 Nasal Cannula 2 02/05/22 06:07 Nasal Cannula 2 02/05/22 05:07 Nasal Cannula 2 02/05/22 04:07 Nasal Cannula 2 02/05/22 03:37 Nasal Cannula 2 02/05/22 03:07 Nasal Cannula 2 02/05/22 02:37 Nasal Cannula 2 02/05/22 02:07 Nasal Cannula 2 02/05/22 01:37 Nasal Cannula 2 02/05/22 01:07 Nasal Cannula 2 02/05/22 00:07 Nasal Cannula 2 Laboratory Results Short CBC 02/04/22 Range/Units 19:00 WBC 10.80 (4.8-10.8) K/ul Hgb 13.9 (12.0-16.0) g/dl Hct 40.1 (34.1-44.9) % Plt Count 316 (130-400) K/uL BMP 02/04/22 19:00 Sodium 137 Potassium 3.5 Chloride 102 Carbon Dioxide 21 BUN 18 Creatinine 1.00 Glucose 135 H Calcium 10.0 Liver Function 02/04/22 Range/Units 19:00 Total Bilirubin 1.1 H (0.2-1.0) mg/dl AST 22 (13-39) U/L ALT 18 (7-52) U/L Alkaline Phosphatase 72 (34-104) U/L Albumin 4.6 (3.4-5.0) gm/dl Urine 02/04/22 Range/Units 20:35 Urine Color Yellow Urine Appearance Clear (Clear) Urine pH 5.0 (4.5-7.5) Ur Specific [place] > 1.045 H (1.000-1.030) Urine Protein Trace H (Negative) Urine Glucose (UA) Negative (Negative) Diagnostic Findings Chest X-Ray 02/04/22 19:12 SINGLE VIEW CHEST CLINICAL HISTORY: Strokelike symptoms. FINDINGS: An AP, portable, upright chest radiograph is obtained. No prior studies are available for comparison at the time of dictation. The examination is degraded by portable technique and apical lordotic positioning. The patient is status post midline sternotomy. The heart is enlarged. The pulmonary vasculature is noncongested. The lungs and pleural spaces are clear noting mild bibasilar atelectasis. No pneumothorax is seen. The skeletal structures are osteopenic. The bony thorax is grossly intact. IMPRESSION: Cardiomegaly with no acute cardiopulmonary abnormality. ACT 112: Negative or not required by law. Electronically signed by: Chato Garcia M.D. 02/05/2022 8:36 AM Neck CTA 02/04/22 19:12 CT angio head w con, CT angio neck with con, CT head/brain wo con CLINICAL HISTORY: 56 years-old Female with Stroke Like Symptoms. Acute strokelike symptoms COMPARISON STUDY: CTA had and neck of same day TECHNIQUE: Unenhanced axial CT scan of the brain is performed. Subsequently, following the IV administration of 112 cc of Optiray, CT angiogram of the head and neck was performed from the aortic arch to the skull apex. Images are reviewed in the axial, sagittal, and coronal planes. 3-D MIPS images are created and assessed. IV contrast was administered without complication. All measurements were obtained according to NASCET criteria. A dose lowering technique was utilized adhering to the principles of ALARA. FINDINGS: CT BRAIN: There is no acute intracranial hemorrhage, midline shift, hydrocephalus, intracranial mass, territorial ischemia or abnormal extra-axial collections. No abnormal intra-axial or extra-axial enhancement. Mild involutional changes. Cerebral vascular calcifications. Mastoid air cells and middle ear cavities are clear. No calvarial fracture. Paranasal sinuses are clear. CT ANGIOGRAM OF THE HEAD AND NECK: Prior median sternotomy with CABG. Three-vessel morphology of the thoracic aortic arch. Patency of the innominate and imaged subclavian arteries. The common and internal carotid arteries are patent. Atherosclerotic plaque of the carotid bulbs results in less than 50% stenosis bilaterally. The bilateral anterior and middle cerebral arteries are also patent. Dominant left vertebral artery. Atherosclerotic plaque of the left greater the right vertebral arteries without high-grade stenosis. The basilar artery is patent. Mild to moderate multifocal luminal narrowing throughout the right posterior cerebral artery. Age-indeterminate occlusion of the P1 segment of the left posterior cerebral artery on image 97 series 5 mild distal reconstitution suggested. Cerebral venous sinuses are patent. Otherwise unremarkable exam without aneurysm or dissection. Thorax. The lung apices appear clear. Unremarkable soft tissues of the neck. Degenerative changes of the cervical spine. IMPRESSION: 1. No acute intracranial abnormality identified. 2. 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 3. Mild atherosclerotic plaque of the carotid bulbs and proximal cervical segments of the internal carotid arteries without significant stenosis. ACT 112: Negative or not required by law. The above report was generated using voice recognition software. It may contain grammatical, syntax or spelling errors. Electronically signed by: Drake Nevarez M.D. 02/04/2022 7:51 PM Brain MRI 02/05/22 00:10 MRI OF THE BRAIN COMBO CLINICAL HISTORY: Stroke. COMPARISON STUDY: CT of the brain dated 02/04/2022. TECHNIQUE: MRI of the brain was performed utilizing various T1 and T2-weighted sequences in the axial, sagittal, and coronal planes. Contrast-enhanced sequences were acquired following the administration of 8 cc of Gadavist. The examination is degraded by motion artifact. FINDINGS: Brain parenchyma: There are foci of restricted diffusion within the left thalamus and the medial left temporal cortex consistent with acute to subacute ischemia. No additional foci of restricted diffusion are identified. There is no evidence of hemorrhage or mass effect. No enhancing mass lesion is identified on the postcontrast images. There is minimal microangiopathic change. No extra- axial fluid collection is seen. The cerebellar tonsils are normal in configuration. Ventricles, sulci, and cisterns: Normal in configuration. Pituitary and sella: Partially empty sella is incidentally noted. Intracranial vasculature: Normal flow voids are maintained at the skull base. Orbits: The bony orbits are grossly intact. Orbital contents are normal in appearance. Sinuses and mastoids: Clear. Calvarium: Unremarkable. Cervical cord: Partially visualized cervical spinal cord is normal in morphology and signal intensity. IMPRESSION: 1. Foci of restricted diffusion within the left thalamus and the medial left temporal cortex are consistent with acute to subacute ischemia. 2. No additional foci of ischemia are suggested. 3. There is no hemorrhage or mass effect. ACT 112: Negative or not required by law. Electronically signed by: Chato Garcia M.D. 02/05/2022 10:24 AM Medications Administered Current Inpatient Medications Aspirin (No Aspirin Within 24hrs Of Thrombolytic-Stroke) 1 each PO UD [facility] Stop: 02/05/22 19:44 Atorvastatin Calcium (Atorvastatin 40 Mg Tab) 80 mg PO DAILY [facility] Stop: 03/07/22 08:59 Last Admin: 02/05/22 10:46 Dose: 80 mg Buspirone HCl (Buspirone 5 Mg Tab) 5 mg PO BID [facility] Stop: 03/07/22 10:29 Last Admin: 02/05/22 10:53 Dose: 5 mg Citalopram Hydrobromide (Citalopram 40 Mg Tab) 40 mg PO DAILY [facility] Stop: 03/07/22 10:29 Last Admin: 02/05/22 10:53 Dose: 40 mg Fenofibrate (Fenofibrate Nanocrystallized 48 Mg Tablet) 48 mg PO DAILY [facility] Stop: 03/07/22 10:29 Last Admin: 02/05/22 10:53 Dose: 48 mg Ceftriaxone Sodium 2,000 mg/ (Dextrose) 70 mls @ 100 mls/hr IV Q24H [facility]; Protocol Stop: 02/14/22 22:59 Last Infusion: 02/05/22 02:10 Dose: Infused Metoprolol Succinate (Metoprolol Succ 25mg Ext Rel Tab) 12.5 mg PO DAILY [facility] Stop: 03/07/22 08:59 Last Admin: 02/05/22 10:45 Dose: 12.5 mg Miscellaneous (Icu Protocol For Hyperglycemia) 1 each N/A ACHS [facility] Stop: 02/07/22 07:29 Last Admin: 02/05/22 10:33 Dose: Not Given Miscellaneous (Icu Electrolyte Replacement Protocol) 1 each N/A BID@06,18 [facility]; Protocol Stop: 02/12/22 05:59 Last Admin: 02/05/22 04:46 Dose: Not Given Miscellaneous Information (Pharmacist Discharge Med Rec Consult) 1 each N/A UD PRN PRN Reason: Consult Stop: 03/06/22 22:36
--- NOTE | 2022-02-05 15:24 | Neurology Consultation ---
Date of Consultation February 05, 2022 Assessment & Plan (1) Cerebrovascular accident: Impression: The patient had sudden onset of right-sided hemiparesthesia, slight weakness, right visual field deficit at 6 PM yesterday and received TNKase just before 8 PM with significant improvement no neurological deficit. Imaging studies showed left posterior cerebral artery territory ischemic stroke. The patient has stroke risk factors including coronary artery disease status post CABG, and hyperlipidemia. Recommendations: We will follow protocol post thrombolytic treatment. Head CT around 8 PM today. If head CT does not show any hemorrhagic conversion or new lesion, then the patient can be transferred to regular floor with telemetry monitoring. If head CT does not show any hemorrhagic conversion, then we will start patient on aspirin 81 mg and Plavix 75 mg daily without bolus. The patient anitha uld be treated on double antiplatelet treatment for the next 3 weeks, then 1 no antiplatelet agent can be stopped. Echocardiogram. Fasting lipid panel. Goal LDL level is lower than 70. We should keep systolic blood pressure below 180, first 24 hours status post thrombolytic treatment. Then, goal blood pressure is below 130/80. Although the patient has stroke risk factors, but is considered to be relatively young age stroke. We will order hypercoagulable state work-up. Outpatient Holter monitoring or Zio patch to investigate for paroxysmal atrial fibrillation. Physical therapy. If the patient stays stable she can be discharged home tomorrow, after completion of stroke work-up. Follow-up with neurology clinic. I will contact with [facility] neurology group to set up an appointment. (2) Hyperlipidemia: Impression: The patient has significant coronary artery disease, on high-dose of Lipitor. She reports that she has been compliant. Recommendations: As seen above. (3) CAD (coronary artery disease): Impression: The patient has history of early age coronary artery disease, status post stent placement with failure, and CABG. She denies any recent chest pain or history of atrial fibrillation. Recommendations: The patient has regular follow-ups with cardiology. Plan Thank you for the consultation. History of Present Illness Reason for Consultation: CVA Requesting Physician: Edson Feng MD Attending Physician: Petra Vilchis DO History of Present Illness The patient is a 56-year-old right-handed female, who presented emergency department with new onset of right-sided hemiparesthesia, weakness of right upper and lower extremity, right facial paresthesia, and right visual field deficit, which started suddenly at 6 PM yesterday. After initial head CT, the patient was considered a candidate for thrombolytic treatment, and received TNKase just before 8 PM. They have noticed significant improvement of symptoms. CT angiography of neck showed no hemodynamically significant stenosis but atherosclerotic changes. Brain CT angiography showed P1 segment of left posterior cerebral artery occlusion. Cardiac monitoring has been showing sinus rhythm. The patient has significant coronary artery disease, status post CABG, on aspirin and Lipitor. She reports that she has been compliant. She denies having any stroke symptoms in the past. She denies having palpitations. She has no prior history of atrial fibrillation. Her blood pressure control has been very well. Patient was admitted to intensive care unit under post tPA protocol. Since this morning, she has only very slight right hand coordination difficulty, and right upper extremity slightly decreased temperature sensation, and right lower extremity slight weakness as a residual neurological deficit. Echocardiogram was done, with pending report. Lipid panel is also pending. I have reviewed the patient's chart including imaging studies and visualized them personally. I have discussed the case with the patient and family and answered their questions in detail. Allergies Allergy/AdvReac Type Severity Reaction Status Date / Time bupropion Allergy Unknown welts all Unverified 02/04/22 19:45 over, itchy, swelling Home Medications Medication Instructions Recorded Confirmed Type acetaminophen 500 mg tablet 1,000 mg PO TID PRN Pain 02/04/22 02/04/22 History amlodipine 5 mg tablet 5 mg PO DAILY 02/04/22 02/04/22 History aspirin 81 mg tablet,delayed 81 mg PO DAILY 02/04/22 02/04/22 History release atorvastatin 80 mg tablet 80 mg PO DAILY 02/04/22 02/04/22 History buspirone 5 mg tablet 5 mg PO BID 02/04/22 02/04/22 History citalopram 40 mg tablet 40 mg PO DAILY 02/04/22 02/04/22 History ezetimibe 10 mg tablet 10 mg PO DAILY 02/04/22 02/04/22 History fenofibrate 54 mg tablet 54 mg PO DAILY 02/04/22 02/04/22 History furosemide 20 mg tablet 20 mg PO DAILY PRN edema,fluid 02/04/22 02/04/22 History accumulation or wt gain lisinopril 2.5 mg tablet 2.5 mg PO DAILY 02/04/22 02/04/22 History metoprolol succinate 25 mg 12.5 mg PO DAILY 02/04/22 02/04/22 History tablet,extended release 24 hr nitroglycerin 0.4 mg sublingual 0.4 mg sublingual Q5W PRN Chest 02/04/22 02/04/22 History tablet (Nitrostat) Pain Patient History Medical History CAD (coronary artery disease) Hyperlipidemia Hypertension Obesity Social History Smoking Status: Former smoker Second Hand Exposure: Yes; Hx Alcohol Use: No Hx Substance Use: Yes Last Used Substance Other:: uses 3 times daily- yesterday afternoon last dose Preferred Language: Serbian Communication Ability: Effective 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 HENT: Normal exam with inspection. CV: Hearth rhythm is regular. Neck: Supple, no carotid bruits. Lungs: Non-labored and comfortable breathing. Abdomen: Soft, non-tender, non-distended. Skin: No rash or ecchymosis. Extremities: No edema or cyanosis NEUROLOGICAL EXAMINATION: Mental Status: Alert and oriented to place, person and time. Cranial Nerves: II-XII are intact. No nystagmus. No visual field deficit. Funduscopy: Normal looking optic discs. Motor: 5/5 in all extremities other than slight weakness of right lower extremity and right deltoid around 5-/5. Tone: Normal without spasticity or rigidity. DTRs: 2+ all except ankles which are 1+. No Babinski. Sensory: Intact to all sensory modalities other than slightly decreased temperature sensation in right upper extremity. Coordination: Slight dysmetria with right FTN testing. Hand coordination is s lightly off during writing. Speech: Fluent. Comprehension is intact. Gait: Not assessed. Musculoskeletal: Normal muscle bulk, no atrophy. Results & Data ([facility]) Vital Signs (Past 12 Hours) Vital Signs Temp Pulse Pulse Pulse Resp BP Pulse Ox 02/05/22 14:07 37.0 C 55 L 21 120/72 93 02/05/22 13:07 37.0 C 53 L 12 124/73 94 02/05/22 12:07 37.0 C 54 L 12 133/71 93 02/05/22 11:07 36.7 C 53 L 15 123/72 93 02/05/22 10:07 36.7 C 52 L 14 117/65 94 02/05/22 08:00 02/05/22 08:00 51 L 02/05/22 09:07 36.7 C 64 18 134/73 94 02/05/22 08:07 36.9 C 56 L 16 122/63 97 02/05/22 08:07 36.9 C 02/05/22 07:07 36.7 C 58 L 14 131/66 97 02/05/22 06:07 36.7 C 55 L 12 131/72 96 02/05/22 05:07 36.7 C 54 L 14 133/60 97 02/05/22 04:07 36.7 C 51 L 16 110/65 97 02/05/22 03:37 36.7 C 53 L 16 115/62 97 O2 Del Method O2 Flow Rate 02/05/22 14:07 Room Air 02/05/22 13:07 Room Air 02/05/22 12:07 Room Air 02/05/22 11:07 Room Air 02/05/22 10:07 Room Air 02/05/22 08:00 Nasal Cannula 2 02/05/22 08:00 02/05/22 09:07 Room Air 02/05/22 08:07 Nasal Cannula 2 02/05/22 08:07 02/05/22 07:07 Nasal Cannula 2 02/05/22 06:07 Nasal Cannula 2 02/05/22 05:07 Nasal Cannula 2 02/05/22 04:07 Nasal Cannula 2 02/05/22 03:37 Nasal Cannula 2 Laboratory Results Laboratory Results - last 24 hr 02/04/22 02/04/22 02/04/22 19:00 19:00 19:00 WBC 10.80 RBC 4.35 Hgb 13.9 Hct 40.1 MCV 92.2 MCH 32.0 MCHC 34.7 RDW Std Deviation 44.7 RDW Coeff of Sophie 13.2 Plt Count 316 MPV 10.1 Immature Gran % (Auto) 0.3 Neut % (Auto) 51.5 Lymph % (Auto) 37.8 Jewell % (Auto) 6.5 Eos % (Auto) 3.1 Baso % (Auto) 0.8 Neut # (Auto) 5.57 Lymph # (Auto) 4.08 H Jewell # (Auto) 0.70 Eos # (Auto) 0.33 Baso # (Auto) 0.09 Immature Gran # (Auto) 0.03 H PT 11.0 INR 1.0 APTT 26.2 PTT Ratio 1.0 Sodium 137 Potassium 3.5 Chloride 102 Carbon Dioxide 21 Anion Gap 14 H BUN 18 Creatinine 1.00 Est Cr Clr Drug Dosing 63.6 Est GFR ( Amer) 72.9 Est GFR (Non-Af Amer) 62.9 BUN/Creatinine Ratio 18.0 Glucose 135 H Lactate Calcium 10.0 Magnesium 1.7 Total Bilirubin 1.1 H AST 22 ALT 18 Alkaline Phosphatase 72 Troponin I High Sens 5.9 Total Protein 7.7 Albumin 4.6 Globulin 3.1 Albumin/Globulin Ratio 1.5 Urine Color Urine Appearance Urine pH Ur Specific Shirley Urine Protein Urine Glucose (UA) Urine Ketones Urine Blood Urine Nitrite Urine Bilirubin Urine Urobilinogen Ur Leukocyte Esterase Urine WBC (Auto) Urine RBC (Auto) U Hyaline Cast (Auto) U Epithel Cells (Auto) Urine Bacteria (Auto) Nasal Screen MRSA (PCR) SARS-CoV-2, RNA, NAAT Blood Type Antibody Screen 02/04/22 02/04/22 02/04/22 19:43 19:43 20:35 WBC RBC Hgb Hct MCV MCH MCHC RDW Std Deviation RDW Coeff of Sophie Plt Count MPV Immature Gran % (Auto) Neut % (Auto) Lymph % (Auto) Jewell % (Auto) Eos % (Auto) Baso % (Auto) Neut # (Auto) Lymph # (Auto) Jewell # (Auto) Eos # (Auto) Baso # (Auto) Immature Gran # (Auto) PT INR APTT PTT Ratio Sodium Potassium Chloride Carbon Dioxide Anion Gap BUN Creatinine Est Cr Clr Drug Dosing Est GFR ( Amer) Est GFR (Non-Af Amer) BUN/Creatinine Ratio Glucose Lactate 4.7 H* Calcium Magnesium Total Bilirubin AST ALT Alkaline Phosphatase Troponin I High Sens Total Protein Albumin Globulin Albumin/Globulin Ratio Urine Color Yellow Urine Appearance Clear Urine pH 5.0 Ur Specific Shirley > 1.045 H Urine Protein Trace H Urine Glucose (UA) Negative Urine Ketones Negative Urine Blood 1+ H Urine Nitrite Negative Urine Bilirubin Negative Urine Urobilinogen Negative Ur Leukocyte Esterase Negative Urine WBC (Auto) 5-10 H Urine RBC (Auto) 5-10 H U Hyaline Cast (Auto) 1-5 U Epithel Cells (Auto) >30 H Urine Bacteria (Auto) 1+ H Nasal Screen MRSA (PCR) SARS-CoV-2, RNA, NAAT Blood Type O Positive Antibody Screen NEGATIVE 02/04/22 02/04/22 20:40 23:00 WBC RBC Hgb Hct MCV MCH MCHC RDW Std Deviation RDW Coeff of Sophie Plt Count MPV Immature Gran % (Auto) Neut % (Auto) Lymph % (Auto) Jewell % (Auto) Eos % (Auto) Baso % (Auto) Neut # (Auto) Lymph # (Auto) Jewell # (Auto) Eos # (Auto) Baso # (Auto) Immature Gran # (Auto) PT INR APTT PTT Ratio Sodium Potassium Chloride Carbon Dioxide Anion Gap BUN Creatinine Est Cr Clr Drug Dosing Est GFR ( Amer) Est GFR (Non-Af Amer) BUN/Creatinine Ratio Glucose Lactate Calcium Magnesium Total Bilirubin AST ALT Alkaline Phosphatase Troponin I High Sens Total Protein Albumin Globulin Albumin/Globulin Ratio Urine Color Urine Appearance Urine pH Ur Specific Shirley Urine Protein Urine Glucose (UA) Urine Ketones Urine Blood Urine Nitrite Urine Bilirubin Urine Urobilinogen Ur Leukocyte Esterase Urine WBC (Auto) Urine RBC (Auto) U Hyaline Cast (Auto) U Epithel Cells (Auto) Urine Bacteria (Auto) Nasal Screen MRSA (PCR) Negative SARS-CoV-2, RNA, NAAT NEGATIVE Blood Type Antibody Screen Diagnostic Findings Chest X-Ray 02/04/22 19:12 SINGLE VIEW CHEST CLINICAL HISTORY: Strokelike symptoms. FINDINGS: An AP, portable, upright chest radiograph is obtained. No prior studies are available for comparison at the time of dictation. The examination is degraded by portable technique and apical lordotic positioning. The patient is status post midline sternotomy. The heart is enlarged. The pulmonary vasculature is noncongested. The lungs and pleural spaces are clear noting mild bibasilar atelectasis. No pneumothorax is seen. The skeletal structures are osteopenic. The bony thorax is grossly intact. IMPRESSION: Cardiomegaly with no acute cardiopulmonary abnormality. ACT 112: Negative or not required by law. Electronically signed by: Chato Garcia M.D. 02/05/2022 8:[address] 02/04/22 19:12 CT angio head w con, CT angio neck with con, CT head/brain wo con CLINICAL HISTORY: 56 years-old Female with Stroke Like Symptoms. Acute strokelike symptoms COMPARISON STUDY: CTA had and neck of same day TECHNIQUE: Unenhanced axial CT scan of the brain is performed. Subsequently, following the IV administration of 112 cc of Optiray, CT angiogram of the head and neck was performed from the aortic arch to the skull apex. Images are reviewed in the axial, sagittal, and coronal planes. 3-D MIPS images are created and assessed. IV contrast was administered without complication. All measurements were obtained according to NASCET criteria. A dose lowering technique was utilized adhering to the principles of ALARA. FINDINGS: CT BRAIN: There is no acute intracranial hemorrhage, midline shift, hydrocephalus, intracranial mass, territorial ischemia or abnormal extra-axial collections. No abnormal intra-axial or extra-axial enhancement. Mild involutional changes. Cerebral vascular calcifications. Mastoid air cells and middle ear cavities are clear. No calvarial fracture. Paranasal sinuses are clear. CT ANGIOGRAM OF THE HEAD AND NECK: Prior median sternotomy with CABG. Three-vessel morphology of the thoracic aortic arch. Patency of the innominate and imaged subclavian arteries. The common and internal carotid arteries are patent. Atherosclerotic plaque of the carotid bulbs results in less than 50% stenosis bilaterally. The bilateral anterior and middle cerebral arteries are also patent. Dominant left vertebral artery. Atherosclerotic plaque of the left greater the right vertebral arteries without high-grade stenosis. The basilar artery is patent. Mild to moderate multifocal luminal narrowing throughout the right posterior cerebral artery. Age-indeterminate occlusion of the P1 segment of the left posterior cerebral artery on image 97 series 5 mild distal reconstitution suggested. Cerebral venous sinuses are patent. Otherwise unremarkable exam without aneurysm or dissection. Thorax. The lung apices appear clear. Unremarkable soft tissues of the neck. Degenerative changes of the cervical spine. IMPRESSION: 1. No acute intracranial abnormality identified. 2. 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 3. Mild atherosclerotic plaque of the carotid bulbs and proximal cervical segments of the internal carotid arteries without significant stenosis. ACT 112: Negative or not required by law. The above report was generated using voice recognition software. It may contain grammatical, syntax or spelling errors. Electronically signed by: Drake Nevarez M.D. 02/04/2022 7:51 PM Head CTA 02/04/22 19:12 CT angio head w con, CT angio neck with con, CT head/brain wo con CLINICAL HISTORY: 56 years-old Female with Stroke Like Symptoms. Acute strokelike symptoms COMPARISON STUDY: CTA had and neck of same day TECHNIQUE: Unenhanced axial CT scan of the brain is performed. Subsequently, following the IV administration of 112 cc of Optiray, CT angiogram of the head and neck was performed from the aortic arch to the skull apex. Images are reviewed in the axial, sagittal, and coronal planes. 3-D MIPS images are created and assessed. IV contrast was administered without complication. All measurements were obtained according to NASCET criteria. A dose lowering technique was utilized adhering to the principles of ALARA. FINDINGS: CT BRAIN: There is no acute intracranial hemorrhage, midline shift, hydrocephalus, intracranial mass, territorial ischemia or abnormal extra-axial collections. No abnormal intra-axial or extra-axial enhancement. Mild involutional changes. Cerebral vascular calcifications. Mastoid air cells and middle ear cavities are clear. No calvarial fracture. Paranasal sinuses are clear. CT ANGIOGRAM OF THE HEAD AND NECK: Prior median sternotomy with CABG. Three-vessel morphology of the thoracic aortic arch. Patency of the innominate and imaged subclavian arteries. The common and internal carotid arteries are patent. Atherosclerotic plaque of the carotid bulbs results in less than 50% stenosis bilaterally. The bilateral anterior and middle cerebral arteries are also patent. Dominant left vertebral artery. Atherosclerotic plaque of the left greater the right vertebral arteries without high-grade stenosis. The basilar artery is patent. Mild to moderate multifocal luminal narrowing throughout the right posterior cerebral artery. Age-indeterminate occlusion of the P1 segment of the left posterior cerebral artery on image 97 series 5 mild distal reconstitution suggested. Cerebral venous sinuses are patent. Otherwise unremarkable exam without aneurysm or dissection. Thorax. The lung apices appear clear. Unremarkable soft tissues of the neck. Degenerative changes of the cervical spine. IMPRESSION: 1. No acute intracranial abnormality identified. 2. 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 3. Mild atherosclerotic plaque of the carotid bulbs and proximal cervical segments of the internal carotid arteries without significant stenosis. ACT 112: Negative or not required by law. The above report was generated using voice recognition software. It may contain grammatical, syntax or spelling errors. Electronically signed by: Drake Nevarez M.D. 02/04/2022 7:51 PM Neck CTA 02/04/22 19:12 CT angio head w con, CT angio neck with con, CT head/brain wo con CLINICAL HISTORY: 56 years-old Female with Stroke Like Symptoms. Acute strokelike symptoms COMPARISON STUDY: CTA had and neck of same day TECHNIQUE: Unenhanced axial CT scan of the brain is performed. Subsequently, following the IV administration of 112 cc of Optiray, CT angiogram of the head and neck was performed from the aortic arch to the skull apex. Images are reviewed in the axial, sagittal, and coronal planes. 3-D MIPS images are created and assessed. IV contrast was administered without complication. All measurements were obtained according to NASCET criteria. A dose lowering technique was utilized adhering to the principles of ALARA. FINDINGS: CT BRAIN: There is no acute intracranial hemorrhage, midline shift, hydrocephalus, intracranial mass, territorial ischemia or abnormal extra-axial collections. No abnormal intra-axial or extra-axial enhancement. Mild involutional changes. Cerebral vascular calcifications. Mastoid air cells and middle ear cavities are clear. No calvarial fracture. Paranasal sinuses are clear. CT ANGIOGRAM OF THE HEAD AND NECK: Prior median sternotomy with CABG. Three-vessel morphology of the thoracic aortic arch. Patency of the innominate and imaged subclavian arteries. The common and internal carotid arteries are patent. Atherosclerotic plaque of the carotid bulbs results in less than 50% stenosis bilaterally. The bilateral anterior and middle cerebral arteries are also patent. Dominant left vertebral artery. Atherosclerotic plaque of the left greater the right vertebral arteries without high-grade stenosis. The basilar artery is patent. Mild to moderate multifocal luminal narrowing throughout the right posterior cerebral artery. Age-indeterminate occlusion of the P1 segment of the left posterior cerebral artery on image 97 series 5 mild distal reconstitution suggested. Cerebral venous sinuses are patent. Otherwise unremarkable exam without aneurysm or dissection. Thorax. The lung apices appear clear. Unremarkable soft tissues of the neck. Degenerative changes of the cervical spine. IMPRESSION: 1. No acute intracranial abnormality identified. 2. 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 3. Mild atherosclerotic plaque of the carotid bulbs and proximal cervical segments of the internal carotid arteries without significant stenosis. ACT 112: Negative or not required by law. The above report was generated using voice recognition software. It may contain grammatical, syntax or spelling errors. Electronically signed by: Drake Nevarez M.D. 02/04/2022 7:51 PM Brain MRI 02/05/22 00:10 MRI OF THE BRAIN COMBO CLINICAL HISTORY: Stroke. COMPARISON STUDY: CT of the brain dated 02/04/2022. TECHNIQUE: MRI of the brain was performed utilizing various T1 and T2-weighted sequences in the axial, sagittal, and coronal planes. Contrast-enhanced sequences were acquired following the administration of 8 cc of Gadavist. The examination is degraded by motion artifact. FINDINGS: Brain parenchyma: There are foci of restricted diffusion within the left thalamus and the medial left temporal cortex consistent with acute to subacute ischemia. No additional foci of restricted diffusion are identified. There is no evidence of hemorrhage or mass effect. No enhancing mass lesion is identified on the postcontrast images. There is minimal microangiopathic change. No extra- axial fluid collection is seen. The cerebellar tonsils are normal in configuration. Ventricles, sulci, and cisterns: Normal in configuration. Pituitary and sella: Partially empty sella is incidentally noted. Intracranial vasculature: Normal flow voids are maintained at the skull base. Orbits: The bony orbits are grossly intact. Orbital contents are normal in appearance. Sinuses and mastoids: Clear. Calvarium: Unremarkable. Cervical cord: Partially visualized cervical spinal cord is normal in morphology and signal intensity. IMPRESSION: 1. Foci of restricted diffusion within the left thalamus and the medial left temporal cortex are consistent with acute to subacute ischemia. 2. No additional foci of ischemia are suggested. 3. There is no hemorrhage or mass effect. ACT 112: Negative or not required by law. Electronically signed by: Chato Garcia M.D. 02/05/2022 10:24 AM
--- NOTE | 2022-02-05 20:25 | CT Scan Report ---
HEAD CT NONCONTRAST CT DOSE: 1074.96 mGy.cm HISTORY: Left-sided cerebral infarct. 24 hour post TNKase for CVA TECHNIQUE: Multiaxial CT images of the head were performed without the use of intravenous contrast. A utomated exposure control was utilized for this study. A dose lowering technique was utilized adheri ng to the principles of ALARA. Comparison: Brain MRI 01/28/2022. Findings: The paranasal sinuses and mastoid air cells are clear. The calvarium and skull base are int act. The ventricles and sulci are within normal limits. There is no mass or midline shift. There is a small hypodensity within the left medial temporal lobe on image 11 measuring 2 cm and a subtle small hypodensity within the left thalamus on image 14. These are consistent with expected evolution of th e patient's known left-sided infarcts. No evidence for hemorrhagic transformation. No additional infa rcts identified at this time. Impression: Expected evolution of the patient's known small left-sided infarcts. No evidence for hemorrhagic price sformation.. ACT 112: Negative or not required by law. Electronically signed by: Oswaldo Stanley M.D. 02/05/2022 8:23 PM
[2022-02-05] MEDS ORDERED: CLOPIDOGREL BISULFATE 75 MG TAB PO ONE (20:45)
[2022-02-05] MEDS: ACETAMINOPHEN 325 MG TAB PO PRN (20:50)
[2022-02-05] MEDS ORDERED: ASPIRIN 81 MG ECTAB PO ONE (21:00)
[2022-02-05 22:03] LABS: Troponin I High Sensitivity 9.7 pg/ml (0-14)
[2022-02-05 22:05] LABS: BUN Creatinine Ratio 17.8 (10-20); Calcium 9.5 mg/dl (8.5-10.1); Chol HDL Ratio 3.4 (0-5); Creatinine Clr Calc Pharmacy 70.7 ml/min; Est GFR (African American) 82.8 ml/min; Est GFR (Non-African American) 71.5 ml/min; Phosphorus 2.9 mg/dl (2.5-4.9); Potassium 3.8 mmol/L (3.5-5.1)
[2022-02-06 07:14] LABS: Estimated Average Glucose 143 mg/dl; Hemoglobin A1C 6.6 % (4.5-5.6)
[2022-02-06 07:54] LABS: BUN Creatinine Ratio 17.7 (10-20); Calcium 9.3 mg/dl (8.5-10.1); Chol HDL Ratio 3.2 (0-5); Creatinine Clr Calc Pharmacy 80.5 ml/min; Est GFR (Non-African American) 83.7 ml/min; Magnesium 1.9 mg/dl (1.7-2.4); Phosphorus 2.7 mg/dl (2.5-4.9); Potassium 3.7 mmol/L (3.5-5.1)
[2022-02-06] MEDS: ACETAMINOPHEN 325 MG TAB PO PRN (08:51)
[2022-02-06] MEDS: CITALOPRAM 40 MG TAB PO SCH (08:53)
[2022-02-06] MEDS: busPIRone 5 MG TAB PO SCH (08:53)
[2022-02-06] MEDS: FENOFIBRATE NANOCRYSTALLIZED 48 MG TABLET PO SCH (08:53)
[2022-02-06] MEDS: ATORVASTATIN 40 MG TAB PO SCH (08:53)
[2022-02-06] MEDS: METOPROLOL SUCC 25MG EXT REL TAB PO SCH (08:54)
[2022-02-06] MEDS ORDERED: CLOPIDOGREL BISULFATE 75 MG TAB PO SCH (09:00)
--- NOTE | 2022-02-06 12:23 | Pharmacy Report ---
- Date of Service February 06, 2022 - Pharmacy CVA/TIA Medication Review Medications to Prevent Stroke handout has been added to the patients discharge packet. Antiplatelet(s) * Aspirin 81 mg daily * Clopidogrel 75 mg daily Cholesterol * High intensity statin: atorvastatin 80 mg daily DVT Prophylaxis * SCD knee, SCD thigh Therapeutic Anticoagulation * No history of Afib/Aflutter noted Type 2 Diabetes * Patient has T2DM, provider aware that patient is not on a diabetes medication with proven CVD benefit. Per Per Dr. Vilchis, this will be evaluated and possibly deferred to their outpatient provider due to familiarity with risks/benefits of such therapies. "Medications to prevent stroke" handout has already been added to the patient's discharge packet, which instructs the patient to follow up with their outpatient provider to evaluate which diabetes medication with proven CVD benefit is best for them.
[2022-02-06] MEDS ORDERED: STROKE PATIENT DISCHARGE STA (15:09)
--- NOTE | 2022-02-06 15:10 | Discharge Summary ---
Discharge Summary Date of Service February 06, 2022 Principal Dx & Hospital Course #1 = Principal Diagnosis (1) Cerebrovascular accident: This morning her neurologic deficits have resolved. She is eating. Has not tried to ambulate yet but feels confident in it. Echocardiogram pending. Previously on aspirin which has been held for 24 hours. Home medications include high-dose statin and Zetia. Neurology consulted and will follow for recommendations regarding additional antiplatelet therapy moving forward. Repeat head CT this evening after TN kinase. Continue monitoring in the ICU for now. Elevated lactate was present likely related to stroke. (2) Hypertension: Chronic, at goal. Amlodipine and lisinopril have been held in order to observe permissive hypertension up to systolic blood pressure of 180/105 post thrombolytic therapy. (3) Asymptomatic bacteriuria: no UTI symptoms, contaminated UA sample. She was started on Rocpehin for empiric coverage. Will follow culture results and clinical improvement. (4) Obesity: Lifestyle changes recommended. (5) Hyperlipidemia: chronic, lipid panel in am. Cont current medications. (6) CAD (coronary artery disease): chronic, stable. Cont medical management of cardiac disease. (7) DVT prophylaxis: SCDs/ambulation Full Code Dispo- to home in 1-2 days [facility] (8) DMII (diabetes mellitus, type 2): Discharge Exam CONSTITUTIONAL: WNWD, vitals as above, generally well-appearing, NAD EYES: EOMI bilaterally, PERRL, normal conjunctivae, no scleral icterus ENT: external ear and nose normal, oropharynx clear NECK: trachea midline RESPIRATORY: clear to auscultation bilaterally, no crackles, rales or wheezes, normal respiratory effort CARDIOVASCULAR: regular rate and rhythm, S1 and 2 heard without murmurs, gallops or rubs, no JVD, no peripheral edema CHEST: inspection of chest was normal GASTROINTESTINAL: soft, nontender, ND, no guarding MUSCULOSKELETAL: strength 5/5 throughout, head is normocephalic and atraumatic SKIN: warm and dry NEUROLOGIC: CN 2-12 grossly intact, no sensory deficit, normal cognition, normal speech, no tremor PSYCHIATRIC: alert cooperative and oriented to person, place and time. Updated Medication List Medication Instructions Recorded Confirmed Type acetaminophen 500 mg tablet 1,000 mg PO TID PRN Pain 02/04/22 02/04/22 History amlodipine 5 mg tablet 5 mg PO DAILY 02/04/22 02/04/22 History aspirin 81 mg tablet,delayed 81 mg PO DAILY 02/04/22 02/04/22 History release atorvastatin 80 mg tablet 80 mg PO DAILY 02/04/22 02/04/22 History buspirone 5 mg tablet 5 mg PO BID 02/04/22 02/04/22 History citalopram 40 mg tablet 40 mg PO DAILY 02/04/22 02/04/22 History ezetimibe 10 mg tablet 10 mg PO DAILY 02/04/22 02/04/22 History fenofibrate 54 mg tablet 54 mg PO DAILY 02/04/22 02/04/22 History furosemide 20 mg tablet 20 mg PO DAILY PRN edema,fluid 02/04/22 02/04/22 History accumulation or wt gain lisinopril 2.5 mg tablet 2.5 mg PO DAILY 02/04/22 02/04/22 History metoprolol succinate 25 mg 12.5 mg PO DAILY 02/04/22 02/04/22 History tablet,extended release 24 hr nitroglycerin 0.4 mg sublingual 0.4 mg sublingual Q5W PRN Chest 02/04/22 02/04/22 History tablet (Nitrostat) Pain clopidogrel 75 mg tablet 75 mg PO QAM #30 tabs 02/06/22 Rx empagliflozin 10 mg tablet 10 mg PO DAILY #30 tabs 02/06/22 Rx (Jardiance) Hospital Stay Data Consultations 02/04/22 20:20 ED Decision to Admit Stat 02/04/22 22:37 Consult Risk Assessment Analyst Routine Consult Neurology Routine Diagnostic Imagining Performed 02/04/22 19:12 CT angio head w con Stat CT angio neck with con Stat CT head/brain wo con Stat 02/05/22 00:10 MR brain wo/w con Routine 02/05/22 19:47 CT head/brain wo con Stat Pending Results Patient Have Any Pending Studies at Discharge: Yes Discharge Instructions Given to Patient (Per Discharging Provider) You were hospitalized for acute stroke symptoms and given a clot busting medication that is a blood thinner, to help your symptoms resolve. Moving forward, please take aspirin 81 mg daily and clopidogrel 75 mg daily together for the next 21 days. After the 21 days you will need to continue the plavix daily and stop the aspirin. Please take all medications as instructed on the discharge list below. Please follow-up with your primary care provider at the time and date provided. Your hemoglobin A1C level technically puts you in a diabetic range for blood sugar. This needs to be reviewed with a plan to treat this. Please note anyone that is classified as a diabetic has a higher risk of cardiac events, and will require yearly podiatry and eye exams and annual blood and urine studies. There are blood studies pending at discharge for review at your follow-up visit with Dr. Carter. There is a new medication called jardiance that is approved to reduce the risk of major adverse cardiovascular events and cardiovascular . This medication was sent to [facility], however, it requires a prior authorization before being dispensed. The pharmacy should be contacating you about this medication when it becomes available. It was a pleasure taking care of you! Please call if you have any questions or problems. You can reach a [facility] hospitalist on duty at [facility] 24 hours a day by calling [phone]. Take care of yourself. Petra Vilchis, [facility]
[2022-02-06] MEDS ORDERED: ASPIRIN 81 MG ECTAB PO SCH (20:30)
[2022-02-08 15:47] LABS: B2 Glycoprotein IgG <2.0 U/mL (<20.0); B2 Glycoprotein IgM <2.0 U/mL (<20.0)
== END 2022-02-06 16:10 | disposition home or self-care (01) | DRG 65 ==
LOC: ED 19:15 → 1E 21:48 → 2E 02-05 21:08